=== PATIENT | male | born 1935 | race Caucasian/White ===

== ENCOUNTER 2020-09-10 11:10 | Emergency (ER) | payer MEDICARE ==
[~2020-09-10] VITALS: Ht 167.6 cm; Wt 60.8 kg
--- NOTE | 2020-09-10 11:30 | NUR ---
MARGARITA FROM HOME TO ER BED 7. AAOX4. NOT IN RESP DISTRESS, BREATHING EVEN AND UNLABORED. BROUGHT IN FOR INTERMITENT NOSEBLEED X 3 DAYS. AT THE TIME OF PRESENTATION. NO ACTIVE NOSEBLEED NOTED BUT PT HAVE DRIED BLOOD ON HIS HANDS. MD AT BEDSIDE FOR EVAL. ORDERS RECEIVED.
[2020-09-10 12:17] LABS: BASOPHILS % (AUTO) 0.6 % (0.0-2.0); EOSINOPHILS % (AUTO) 2.2 % (0.0-6.0); HEMATOCRIT 39 % (39-51); HEMOGLOBIN 12.9 g/dL (13.5-17.5); LYMPHOCYTES # (AUTO) 0.9 /CMM (0.8-4.8); LYMPHOCYTES % (AUTO) 14.8 % (20.0-44.0); MEAN CORPUSCULAR HGB CONC 34 g/dl (31.0-36.0); MEAN CORPUSCULAR VOLUME 89 fL (80-96); MONOCYTES # (AUTO) 0.7 /CMM (0.1-1.30); NEUTROPHILS # (AUTO) 4.6 /CMM (1.8-8.9); NEUTROPHILS % (AUTO) 71.4 % (43.0-81.0); PLATELET COUNT (AUTO) 225 /CMM (150-450); RED BLOOD CELL COUNT(AUTO) 4.33 MIL/uL (4.5-6.0); WHITE BLOOD COUNT (AUTO) 6.4 K/uL (4.3-11.0)
--- NOTE | 2020-09-10 12:55 | NUR ---
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 HE WILL SEND KARLEY TO HAVE HIS DAD PICKED UP.
--- NOTE | 2020-09-10 13:16 | NUR ---
Elsy picked up. Patient discharged to home in stable condition. Written and verbal after care instructions given. Patient verbalizes understanding of instruction. Pt ambulatory with a steady gait
[2020-09-10 13:17] VITALS: BP 138/77
== END 2020-09-10 13:18 | disposition home or self-care (01) ==
LOC: ER 11:23
DX: R04.0 Epistaxis (principal); H91.90 Unspecified hearing loss, unspecified ear
CPT/HCPCS: 36415; 85025-TC; 85730-TC

== ENCOUNTER 2020-10-24 02:42 | Emergency (ER) | payer MEDICARE, BC ==
[~2020-10-24] VITALS: Ht 170.2 cm; Wt 78.5 kg
--- NOTE | 2020-10-24 02:55 | NUR ---
PATIENT'S FERRER CATHETER BAG IS CHANGED AND URINE IS DRAINING.
[2020-10-24 03:43] LABS: BILIRUBIN,URINE NEGATIVE (NEGATIVE); COLOR,URINE YELLOW (YELLOW); LEUKOCYTE ESTERASE ,URINE MODERATE (NEGATIVE); NITRITE, URINE POSITIVE (NEGATIVE); PROTEIN,URINE 100 mg/dl (NEGATIVE); UGLUCOSE NEGATIVE (NEGATIVE); UROBILINOGEN,URINE 0.2 EU/dL (0.2)
[2020-10-24 03:48] LABS: BACTERIA,URINE 3+ /HPF (None Seen); RBC,URINE TOO NUMEROUS TO COUN /HPF (0-2); SQUAMOUS EPITHELIAL CELL,UR Few /HPF (None Seen); WBC,URINE TOO NUMEROUS TO COUN /HPF (0-3)
[2020-10-24 03:49] LABS: URINE AMORPHOUS URATE Moderate /HPF (None Seen)
[2020-10-24 05:33] VITALS: BP 141/74
[2020-10-24] MEDS ORDERED: CIPR-262 PO (05:38)
--- NOTE | 2020-10-24 06:45 | NUR ---
Patient discharged to home in stable condition. Written and verbal after care instructions given. Patient verbalizes understanding of instruction.
--- NOTE | 2020-10-24 06:54 | NUR ---
CALLED HAYLEY TO RECEIVE PATIENT.
== END 2020-10-24 06:56 | disposition home or self-care (01) ==
LOC: ER 02:45
DX: N39.0 Urinary tract infection, site not specified (principal)
CPT/HCPCS: 81001; 87086-TC; 87186-TC

== ENCOUNTER 2021-05-10 00:47 | Inpatient (IN) | payer MEDICARE, BC ==
[~2021-05-10] VITALS: Ht 172.7 cm; Wt 82.6 kg
[~2021-05-10 00:47] MED LIST: CIPR-262 PO
--- NOTE | 2021-05-10 01:15 | NUR ---
PATIENT [id number] C/O RIGHT UPPER QUADRANT PAIN FOR THE PAST FEW HOURS, WITH +NAUSEA. PATIENT IS A/O X 4, RR EVEN AND UNLABORED, NO SOB NOTED. PATIENT CONNECTED TO HISTORIC SITES REGISTRAR AND POX.
[2021-05-10] MEDS ORDERED: PANTOPRAZOLE 40 MG VIAL ONE (01:25)
[2021-05-10] MEDS ORDERED: PANTOPRAZOLE 40 MG VIAL IV ONE (01:30)
--- NOTE | 2021-05-10 01:36 | NUR ---
URINE COLLECTED AND SENT TO LAB
[2021-05-10 01:42] LABS: BASOPHILS # (AUTO) 0.1 K/uL (0.0-0.2); BASOPHILS % (AUTO) 0.8 % (0.0-2.0); EOSINOPHILS % (AUTO) 2.9 % (0.0-6.0); HEMATOCRIT 39 % (39-51); HEMOGLOBIN 13.4 g/dL (13.5-17.5); LYMPHOCYTES # (AUTO) 1.4 K/uL (0.8-4.8); LYMPHOCYTES % (AUTO) 18.4 % (20.0-44.0); MEAN CORPUSCULAR HGB CONC 34 g/dl (31.0-36.0); MEAN CORPUSCULAR VOLUME 89 fL (80-96); MONOCYTES # (AUTO) 0.7 K/uL (0.1-1.30); NEUTROPHILS # (AUTO) 5.3 K/uL (1.8-8.9); NEUTROPHILS % (AUTO) 68.9 % (43.0-81.0); PLATELET COUNT (AUTO) 340 K/uL (150-450); RED BLOOD CELL COUNT(AUTO) 4.41 MIL/uL (4.5-6.0); WHITE BLOOD COUNT (AUTO) 7.8 K/uL (4.3-11.0)
[2021-05-10 01:43] LABS: ALANINE AMINOTRANSFERASE 211 U/L (12-78); ALBUMIN 3.3 g/dL (3.4-5.0); ALKALINE PHOSPHATASE 166 U/L (46-116); ASPARTATE AMINOTRANSFERASE 224 U/L (15-37); BILIRUBIN,DIRECT 0.9 mg/dL (0.0-0.2); BILIRUBIN,TOTAL 1.8 mg/dL (0.2-1.0); CALCIUM, SERUM 9.1 mg/dL (8.5-10.1); CARBON DIOXIDE 23 mmol/L (21-32); CHLORIDE 106 mmol/L (98-107); CREATININE 1.6 mg/dL (0.6-1.3); GLUCOSE 130 mg/dL (74-106); LIPASE 168 U/L (73-393); POTASSIUM 3.9 mmol/L (3.5-5.1); SODIUM SERUM 141 mmol/L (136-145); TOTAL PROTEIN, SERUM 7.4 g/dL (6.4-8.2); UREA NITROGEN, BLOOD 20 mg/dL (7-18)
[2021-05-10 02:00] LABS: BILIRUBIN,URINE SMALL (NEGATIVE); COLOR,URINE YELLOW (YELLOW); LEUKOCYTE ESTERASE ,URINE NEGATIVE (NEGATIVE); NITRITE, URINE NEGATIVE (NEGATIVE); PROTEIN,URINE NEGATIVE (NEGATIVE); UGLUCOSE NEGATIVE (NEGATIVE)
[2021-05-10] MEDS ORDERED: ONDANSETRON HCL/PF 4 MG/2 ML VIAL ONE ×2 (02:48→05:30)
[2021-05-10] MEDS ORDERED: MORPHINE SULFATE INJ 2 MG/ML DISP.SYRIN ONE ×2 (02:48→05:30)
[2021-05-10] MEDS ORDERED: ONDANSETRON HCL/PF - ER 4 MG/2 ML VIAL IV ONE ×2 (03:00→05:30)
[2021-05-10] MEDS ORDERED: MORPHINE SULFATE INJ 2 MG/ML DISP.SYRIN IV ONE ×2 (03:00→05:30)
--- NOTE | 2021-05-10 03:59 | NUR ---
FOLLOWED UP WITH [facility] REGARDING IMAGING RESULT
[2021-05-10] MEDS ORDERED: BISACODYL SUPP (10 MG) 10 MG/SUPP.RECT SUPP.RECT RC ONE ×2 (04:30→04:45)
[2021-05-10] MEDS ORDERED: CEFTRIAXONE 1 G in IV D5W 50 ML IV ONE (04:30)
[2021-05-10] MEDS ORDERED: CEFTRIAXONE 1GM BAG (ER ONLY) 50 ML IV ONE (04:45)
--- NOTE | 2021-05-10 05:04 | NUR ---
COVID SWAB DONE AND SENT TO LAB
--- NOTE | 2021-05-10 06:16 | NUR ---
ROOM ASSIGNMENT: [id number]
--- NOTE | 2021-05-10 06:49 | NUR ---
REPORT GIVEN TO CHUN MARTIN
--- NOTE | 2021-05-10 06:57 | NUR ---
PATIENT TRANSFERRED, VSS, PT NOTED IN NO ACUTE DISTRESS.
[2021-05-10 06:58] VITALS: BP 149/88
[2021-05-10] MEDS ORDERED: ONDANSETRON HCL/PF 4 MG/2 ML VIAL IVP PRN (07:00)
--- NOTE | 2021-05-10 07:05 | NUR ---
PATIENT ARRIVED @0681 [employer]IA [employer]. WNL. WILL ENDORSE TO ONCOMING SHIFT.
[2021-05-10] MEDS: IV NS 0.9% 1,000 ML IV PRN ×2 (07:58→18:12)
[2021-05-10 08:00] VITALS: BP 152/78
[2021-05-10] MEDS: ACETAMINOPHEN 325 MG TABLET PO PRN (08:10)
--- NOTE | 2021-05-10 08:22 | NUR ---
MS MCCOLLUM OPENING NOTES: RECEIVED PATIENT IN BED, AWAKE, A/O X2. PATIENT ON ROOM AIR; BREATHING EVEN AND UNLABORED, NO SOB NOTED. NO COMPLAINS OF PAIN. L WRIST IV ACCESS G # 20 PRESENT AND INTACT RUNNING NS @ 100 MLS/HR. SAFETY PRECAUTIONS IN PLACE; BED IN LOW POSITION AND LOCKED, RAILS UP X2, CALL LIGHT WITHIN REACH. WILL CONTINUE TO MONITOR PATIENT. Addendum: 05/10/21 at 0831 by BREONNA COX RN DIFFERENT PATIENT
--- NOTE | 2021-05-10 08:31 | NUR ---
MS RN ADMITTING/OPENING NOTES: RECEIVED PATIENT IN BED, AWAKE, A/O X4 NEW ADMISSION. PATIENT ON ROOM AIR; BREATHING EVEN AND UNLABORED, NO SOB NOTED. COMPLAINING OF ABDOMINAL PAIN; PRN TYLENOL ADMINISTERED. LAC G# 18 PRESENT AND INTACT RUNNING NS @ 75 MLS/HR. SAFETY PRECAUTIONS IN PLACE; BED IN LOW POSITION AND LOCKED, RAILS UP X2, CALL LIGHT WITHIN REACH. WILL CONTINUE TO MONITOR PATIENT.
--- NOTE | 2021-05-10 10:21 | NUR ---
MS RN NOTES ENDORSED PATIENT FOR YARED TO NURSE GRIFFITHS
--- NOTE | 2021-05-10 11:51 | NUR ---
MS/RN NOTES VTE SCORE 3 JESÚS MOTT WAS AWARE NO NEW ORDER AT THIS TIME.
[2021-05-10 16:00] VITALS: BP 144/80
[2021-05-10] MEDS: VALSARTAN 80 MG TABLET PO SCH (16:11)
--- NOTE | 2021-05-10 18:38 | NUR ---
MS/RN CLOSING NOTES PATIENT IS AWAKE, ALERT AND ORIENTED X3-4. PATIENT IS ON ROOM AIR. PATIENT IN NO APPARENT RESPIRATORY DISTRESS NOTED. COMPLAINED OF PAIN NOTED OFFER PAIN MEDICATION PATIENT REFUSED. IV ACCESS AT RIGHT AC #2OG WITH IV FLUID OF NS 1L AT 75ML/HOUR ON AND INFUSING WELL. SEEN AND EXAMINED BY MD WITH ORDERS MADE AND CARRIED OUT. ALL DUE MEDICATIONS WAS GIVEN. SAFETY PRECAUTIONS WAS IN PLACED. BED IN LOWEST POSITION AND LOCKED. SIDERAILS UP X2. CALL LIGHT WITHIN REACH. WILL ENDORSED TO ANGER CONTROL COUNSELOR FOR YARED.
--- NOTE | 2021-05-10 19:50 | NUR ---
Patient is currently resting in bed though easy to wake, A&Ox4, no signs of distress. Patient reports only tolerable "discomfort" to abdomen at this time. Reminded patient to ask when using the restroom d/t fall risk and because we need a urine sample for testing. RAC #20G currently infusing NS at 75cc/hr. Will continue to monitor.
[2021-05-10 20:00] VITALS: BP 131/81
--- NOTE | 2021-05-10 21:37 | NUR ---
urine specimen collected. called lab for pickup.
[2021-05-10 23:15] LABS: BILIRUBIN,URINE SMALL (NEGATIVE); COLOR,URINE AMBER (YELLOW); LEUKOCYTE ESTERASE ,URINE NEGATIVE (NEGATIVE); NITRITE, URINE NEGATIVE (NEGATIVE); PROTEIN,URINE TRACE mg/dl (NEGATIVE); UGLUCOSE NEGATIVE (NEGATIVE); UROBILINOGEN,URINE >=8.0 EU/dL (0.2)
[2021-05-10 23:38] LABS: CREATININE, URINE 123.2 MG/DL (30.0-125.0); URINE TOTAL PROTEIN 36.1 mg/dL (0-11.9)
[2021-05-11 02:04] LABS: BACTERIA,URINE None seen /HPF (None Seen); RBC,URINE 0-2 /HPF (0-2); WBC,URINE NONE SEEN /HPF (0-3)
[2021-05-11 02:05] LABS: EOSINOPHIL,URINE None Seen; SQUAMOUS EPITHELIAL CELL,UR Few /HPF (None Seen)
[2021-05-11] MEDS: CEFTRIAXONE 1 G in IV D5W 50 ML IV SCH (05:32)
[2021-05-11 06:30] LABS: ALBUMIN 2.8 g/dL (3.4-5.0); BILIRUBIN,TOTAL 3.9 mg/dL (0.2-1.0); CALCIUM, SERUM 8.2 mg/dL (8.5-10.1); CREATININE 1.2 mg/dL (0.6-1.3); MAGNESIUM 2.1 mg/dL (1.8-2.4); PHOSPHORUS 1.9 mg/dL (2.5-4.9); POTASSIUM 3.8 mmol/L (3.5-5.1); TOTAL PROTEIN, SERUM 6.8 g/dL (6.4-8.2)
[2021-05-11 06:50] LABS: BASOPHILS # (AUTO) 0.1 K/uL (0.0-0.2); BASOPHILS % (AUTO) 0.3 % (0.0-2.0); EOSINOPHILS % (AUTO) 0.3 % (0.0-6.0); HEMATOCRIT 37 % (39-51); HEMOGLOBIN 12.7 g/dL (13.5-17.5); LYMPHOCYTES % (AUTO) 6.5 % (20.0-44.0); MEAN CORPUSCULAR HGB CONC 34 g/dl (31.0-36.0); MEAN CORPUSCULAR VOLUME 90 fL (80-96); MONOCYTES # (AUTO) 1.9 K/uL (0.1-1.30); MONOCYTES % (AUTO) 12.2 % (2.0-12.0); NEUTROPHILS # (AUTO) 12.7 K/uL (1.8-8.9); NEUTROPHILS % (AUTO) 80.7 % (43.0-81.0); PLATELET COUNT (AUTO) 315 K/uL (150-450); RED BLOOD CELL COUNT(AUTO) 4.18 MIL/uL (4.5-6.0); WHITE BLOOD COUNT (AUTO) 15.7 K/uL (4.3-11.0)
[2021-05-11] MEDS: IV NS 0.9% 1,000 ML IV PRN ×2 (06:59→17:50)
--- NOTE | 2021-05-11 07:20 | NUR ---
Patient has been A&Ox4 overnight slept well though easy to wake. Urinated x3, sent first urine specimen to lab. Asks for assistance to restroom minimal 1 person and steady. Afebrile. VSS. States he only has minimal abdominal discomfort and does not want PRN medication.
--- NOTE | 2021-05-11 07:34 | NUR ---
MS/RN OPENING NOTES RECEIVED PATIENT AWAKE ALERT AND ORIENTED X 4. PATIENT IS ON ROOM AIR. PATIENT IN NO APPARENT RESPIRATORY DISTRESS NOTED. NO COMPLAINED OF PAIN AT THIS TIME. WILL CONTINUE TO MONITOR.
[2021-05-11 08:00] VITALS: BP 135/84
[2021-05-11] MEDS ORDERED: ROSU20TA32 PO (10:13)
[2021-05-11] MEDS ORDERED: LOSA25TA27 PO (10:13)
[2021-05-11] MEDS ORDERED: FAMO40TA7 PO (10:13)
[2021-05-11] MEDS ORDERED: FINA5TAB11 PO (10:13)
[2021-05-11] MEDS ORDERED: MIRT7.5T10 PO (10:13)
[2021-05-11] MEDS ORDERED: QUET25TA PO (10:13)
[2021-05-11] MEDS ORDERED: TICA90TA PO (10:13)
[2021-05-11] MEDS ORDERED: MEMA7CAP2 PO (10:13)
[2021-05-11] MEDS ORDERED: TAMS-12 PO (10:13)
[2021-05-11] MEDS ORDERED: ASPI-1420 PO (10:13)
[2021-05-11] MEDS ORDERED: K PHOS NEUTRAL 250 MG TABLET PO ONE (15:30)
[2021-05-11 16:00] VITALS: BP 125/75
--- NOTE | 2021-05-11 19:15 | NUR ---
MS/RN CLOSING NOTES PATIENT IS AWAKE, ALERT AND ORIENTED X3-4. PATIENT IS ON ROOM AIR. PATIENT IN NO APPARENT RESPIRATORY DISTRESS NOTED. NO COMPLAINED OF PAIN NOTED. IV ACCESS AT RIGHT AC #2OG WITH IV FLUID OF NS 1L AT 75ML/HOUR ON AND INFUSING WELL. SEEN AND EXAMINED BY MD WITH ORDERS MADE AND CARRIED OUT. ALL DUE MEDICATIONS WAS GIVEN. SAFETY PRECAUTIONS WAS IN PLACED. BED IN LOWEST POSITION AND LOCKED. SIDERAILS UP X2. CALL LIGHT WITHIN REACH. WILL ENDORSED TO HOUSE DIRECTOR FOR YARED.
--- NOTE | 2021-05-11 19:30 | NUR ---
RN OPENING NOTE PATIENT IN BED, SLEEPING. AWAKENS EASILY. A/O X 4. PATIENT IS ON RA, TOLERATING WELL. PATIENT HAS LOSS OF HEARING ON R EAR. PATIENT HAS A RAC 20 G WITH NS AT 75 ML/HR, PATENT AND INTACT. PATIENT DOES NOT REPORT ANY PAIN AT THIS TIME. NO N/V. SAFETY MEASURES IN PLACE: BED LOCKED AND IN LOWEST POSITION, CALL LIGHT WITHIN REACH, SIDE RAILS UP, BED ALARM ON. WILL MONITOR PATIENT CLOSELY.
[2021-05-11 20:00] VITALS: BP 119/69
[2021-05-11] MEDS: VALSARTAN 80 MG TABLET PO SCH (22:07)
[2021-05-11] MEDS: ACETAMINOPHEN 325 MG TABLET PO PRN (22:35)
--- NOTE | 2021-05-12 01:26 | NUR ---
RN NOTE OBTAINED HIDA SCAN, EDUCATED PATIENT, AND PUT PATIENT ON NPO.
[2021-05-12] MEDS: CEFTRIAXONE 1 G in IV D5W 50 ML IV SCH (04:35)
[2021-05-12] MEDS: IV NS 0.9% 1,000 ML IV PRN (04:41)
[2021-05-12 06:13] LABS: BASOPHILS # (AUTO) 0.1 K/uL (0.0-0.2); BASOPHILS % (AUTO) 0.5 % (0.0-2.0); EOSINOPHILS % (AUTO) 2.6 % (0.0-6.0); HEMATOCRIT 37 % (39-51); HEMOGLOBIN 12.5 g/dL (13.5-17.5); LYMPHOCYTES % (AUTO) 17.7 % (20.0-44.0); MEAN CORPUSCULAR HGB CONC 34 g/dl (31.0-36.0); MEAN CORPUSCULAR VOLUME 91 fL (80-96); MONOCYTES # (AUTO) 1.3 K/uL (0.1-1.30); NEUTROPHILS # (AUTO) 7.6 K/uL (1.8-8.9); NEUTROPHILS % (AUTO) 67.2 % (43.0-81.0); PLATELET COUNT (AUTO) 308 K/uL (150-450); WHITE BLOOD COUNT (AUTO) 11.2 K/uL (4.3-11.0)
--- NOTE | 2021-05-12 06:47 | NUR ---
RN CLOSING NOTE PATIENT IN BED, SLEEPING. AWAKENS EASILY. A/O X 4. PATIENT IS ON RA, TOLERATING WELL. PATIENT HAS LOSS OF HEARING ON R EAR. PATIENT HAS A RAC 20 G WITH NS AT 75 ML/HR, PATENT AND INTACT. PATIENT DOES NOT REPORT ANY PAIN AT THIS TIME, PAIN MANAGED WITH TYLENOL. PATIENT IS CURRENTLY NPO FOR ORDERED HIDA SCAN. CONSENT SIGNED. SAFETY MEASURES IN PLACE: BED LOCKED AND IN LOWEST POSITION, CALL LIGHT WITHIN REACH, SIDE RAILS UP, BED ALARM ON. WILL ENDORSE TO DAY SHIFT NURSE FOR YARED.
--- NOTE | 2021-05-12 07:25 | NUR ---
RN MS OPENING NOTES RECEIVED PATIENT IN BED, SLEEPING. EASILY AROUSABLE. A/O X 4. ON R.A TOLERATING WELL. NO SOB OR RESPIRATORY DISTRESS NOTED .BREATHING EVEN AND UNLABORED.PATIENT HAS LOSS OF HEARING ON R EAR. PATIENT HAS IV AT RAC 20 G WITH NS AT 75 ML/HR, PATENT AND INTACT. NO FACIAL GRIMACE, NO MOANING AND NO GUARDING BX NOTED AT THIS TIME, IN COMFORTABLE POSITION. SAFETY MEASURES IN PLACE: BED LOCKED AND IN LOWEST POSITION, CALL LIGHT WITHIN REACH, SIDE RAILS UP, BED ALARM ON. WILL CONTINUE TO MONITOR PATIENT ACCDGLY..
--- NOTE | 2021-05-12 07:34 | NUR ---
RN NOTES REMINDED PATIENT THAT HE IS STILL ON NPO AT THIS TIME FOR HIDA PROCEDURE AND EXPRESSED UNDERSTANDING. WILL CONTINUE TO MONITOR PATIENT.
[2021-05-12 08:00] VITALS: BP 131/80
[2021-05-12 08:11] LABS: ALANINE AMINOTRANSFERASE 127 U/L (12-78); ALBUMIN 2.8 g/dL (3.4-5.0); ALKALINE PHOSPHATASE 182 U/L (46-116); ASPARTATE AMINOTRANSFERASE 43 U/L (15-37); BILIRUBIN,TOTAL 2.1 mg/dL (0.2-1.0); CALCIUM, SERUM 8.6 mg/dL (8.5-10.1); CARBON DIOXIDE 24 mmol/L (21-32); CHLORIDE 108 mmol/L (98-107); CREATININE 1.4 mg/dL (0.6-1.3); GLUCOSE 91 mg/dL (74-106); LIPASE 443 U/L (73-393); MAGNESIUM 2.3 mg/dL (1.8-2.4); PHOSPHORUS 2.2 mg/dL (2.5-4.9); POTASSIUM 3.8 mmol/L (3.5-5.1); SODIUM SERUM 141 mmol/L (136-145); TOTAL PROTEIN, SERUM 7.2 g/dL (6.4-8.2); UREA NITROGEN, BLOOD 16 mg/dL (7-18)
--- NOTE | 2021-05-12 09:40 | NUR ---
RN MS NOTES RECEIVED A CALL FROM [facility] AND WAS TOLD THAT HE CAN DO THE HIDA SCAN TODAY
[2021-05-12] MEDS ORDERED: K PHOS NEUTRAL 250 MG TABLET PO ONE (11:00)
--- NOTE | 2021-05-12 11:59 | NUR ---
RN MS NOTES PATIENT WAS PICKED UP BY [facility]. VIA WHEELCHAIR. IN STABLE CONDITION. WILL CONTINUE TO MONITOR PATIENT
[2021-05-12 16:00] VITALS: BP 119/73
--- NOTE | 2021-05-12 18:38 | NUR ---
RN MS NOTES PATIENT WAS SEEN BY DR. SEGURA AND ORDERED FOR LAPAROSPCOPIC CHOLECYSTECMY POSSIBLE EXPLOR. LAP IN AM ALEJANDRA. EXPLAINED BY MD ABOUT THE PROCEDURE AND VERBALIZED UNDERSTANDING. PATIENT SIGNED CONSENT FOR THE PROCEDURE. DR. MOTT ALSO MADE HIS ROUNDS AND DISCUSSED AND EXPLAINED THE PROCEDURE TO THE PT. CALLED AND SPOKE TO THE SON( GIOVANNY) AND NOTIFIED HIM ABOUT THE PROCEDURE AND EXPRESSED UNDERSTANDING AND WAS TOLD THAT HE ALSO SPOKE WITH DR. SEGURA AND EXPLAINED TO HIM THE PROCEDURE. REINFORCED WITH PATIENT THAT HE IS ON NPO STARTING 12 M.N. WILL CONTINUE TO MONITOR PT.
--- NOTE | 2021-05-12 18:59 | NUR ---
RN MS CLOSING NOTES PATIENT IN BED, AWAKE, A/O X 4. ON R.A TOLERATING WELL. NO SOB OR RESPIRATORY DISTRESS NOTED .BREATHING EVEN AND UNLABORED.PATIENT HAS LOSS OF HEARING ON R EAR. PATIENT WITH IV AT RAC 20 G WITH NS AT 75 ML/HR, PATENT AND INTACT. NO FACIAL GRIMACE, NO MOANING AND NO GUARDING BX NOTED AT THIS TIME, IN COMFORTABLE POSITION. SAFETY MEASURES IN PLACE: BED LOCKED AND IN LOWEST POSITION, CALL LIGHT WITHIN REACH, SIDE RAILS UP, BED ALARM ON. WILL ENDORSED PT. TO RETICLE PRINTER NURSE FOR CONTINUITY OF CARE.
--- NOTE | 2021-05-12 19:30 | NUR ---
RN OPENING NOTE PATIENT IN BED, AWAKE. A/O X 4. PATIENT IS ON RA, TOLERATING WELL. PATIENT HAS LOSS OF HEARING ON R EAR. PATIENT HAS A RAC 20 G WITH NS AT 75 ML/HR, PATENT AND INTACT. PATIENT DOES NOT REPORT ANY PAIN AT THIS TIME. NO N/V. PATIENT NPO AFTER MIDNIGHT FOR PROCEDURE IN AM, CONSENTS SIGNED. SAFETY MEASURES IN PLACE: BED LOCKED AND IN LOWEST POSITION, CALL LIGHT WITHIN REACH, SIDE RAILS UP, BED ALARM ON. WILL MONITOR PATIENT CLOSELY.
[2021-05-12 20:00] VITALS: BP 113/65
[2021-05-12] MEDS: VALSARTAN 80 MG TABLET PO SCH (21:57)
[2021-05-13] VITALS (21 sets, daily range): BP systolic 82–146; BP diastolic 52–80
[2021-05-13] MEDS: CEFTRIAXONE 1 G in IV D5W 50 ML IV SCH (05:04)
[2021-05-13] MEDS: IV NS 0.9% 1,000 ML IV PRN ×2 (05:32→14:07)
[2021-05-13 06:49] LABS: BASOPHILS # (AUTO) 0.1 K/uL (0.0-0.2); BASOPHILS % (AUTO) 0.7 % (0.0-2.0); EOSINOPHILS % (AUTO) 4.8 % (0.0-6.0); HEMATOCRIT 33 % (39-51); HEMOGLOBIN 11.4 g/dL (13.5-17.5); LYMPHOCYTES # (AUTO) 1.4 K/uL (0.8-4.8); LYMPHOCYTES % (AUTO) 17.2 % (20.0-44.0); MEAN CORPUSCULAR HGB CONC 35 g/dl (31.0-36.0); MEAN CORPUSCULAR VOLUME 89 fL (80-96); MONOCYTES % (AUTO) 12.9 % (2.0-12.0); NEUTROPHILS # (AUTO) 5.2 K/uL (1.8-8.9); NEUTROPHILS % (AUTO) 64.4 % (43.0-81.0); PLATELET COUNT (AUTO) 303 K/uL (150-450); RED BLOOD CELL COUNT(AUTO) 3.65 MIL/uL (4.5-6.0)
[2021-05-13 07:06] LABS: *SPE A/G RATIO 0.9 (0.7-1.7); *SPE ALPHA-1-GLOBULIN 0.3 g/dL (0.0-0.4); *SPE ALPHA-2-GLOBULIN 0.8 g/dL (0.4-1.0); *SPE M-SPIKE Not Observed g/dL (Not Observed)
[2021-05-13] MEDS ORDERED: BUPIVACAINE MPF 0.5% W/EPI INJ 30 ML VIAL ONE ×2 (07:30→10:17)
[2021-05-13] MEDS ORDERED: LIDOCAINE 1% INJ 50 ML MDV IJ ONE (07:30)
--- NOTE | 2021-05-13 07:30 | NUR ---
find pt. in am npo for surg.iv infusing,no complaints,making ready for or.side rails up call huang in place.
--- NOTE | 2021-05-13 07:39 | NUR ---
RN CLOSING NOTE PATIENT PREPPED FOR SX, ALL CONSENTS SIGNED AND CHECKLIST DONE. SPOKE WITH SX NURSE AND CONFIRMED ALL PATIENT INFO. PATIENT STABLE AT THIS TIME. ENDORSED TO DAY SHIFT NURSE FOR YARED.
[2021-05-13 08:04] LABS: ALBUMIN 2.4 g/dL (3.4-5.0); BILIRUBIN,TOTAL 1.6 mg/dL (0.2-1.0); CALCIUM, SERUM 8.2 mg/dL (8.5-10.1); CREATININE 1.1 mg/dL (0.6-1.3); MAGNESIUM 2.2 mg/dL (1.8-2.4); PHOSPHORUS 2.9 mg/dL (2.5-4.9); POTASSIUM 3.9 mmol/L (3.5-5.1); TOTAL PROTEIN, SERUM 6.5 g/dL (6.4-8.2)
--- NOTE | 2021-05-13 09:30 | NUR ---
to or via pt. pt. voided.no c/o pain.
[2021-05-13] MEDS ORDERED: FENTANYL PF 250MCG/5ML AMPUL ONE (09:53)
[2021-05-13] MEDS ORDERED: MIDAZOLAM HCL 2 MG/2ML VIAL ONE (09:53)
[2021-05-13] MEDS ORDERED: FAMOTIDINE/PF INJ 20 MG/2 ML VIAL IV ONE (09:54)
[2021-05-13] MEDS ORDERED: ROCURONIUM BROMIDE 50 MG/5 ML ONE (09:54)
[2021-05-13] MEDS ORDERED: GLYCOPYRROLATE 0.2 MG/ML VIAL ONE (10:26)
[2021-05-13] MEDS ORDERED: CELLULOSE,OXIDIZED 1 EA PACK MC ONE (11:30)
[2021-05-13] MEDS ORDERED: BACITRACIN OPHTH OINT 3.5 GM TUBE ONE (12:13)
--- NOTE | 2021-05-13 12:30 | NUR ---
received call from rec. rm. pt. to go to [facility] rm.[id number],post-op.report called to chelly and belongings sent to [facility].
--- NOTE | 2021-05-13 13:30 | NUR ---
RN NOTES RECEIVED PT FROM OR IN ROOM 258. PT VERY MARY'S IGLOO, A/O x1, FOLLOW SIMPLE COMMAND, ON TELE, SR HR IN 72, ON 4L O2 N/C , O2 SAT WNL, R AC IV SITE g 20 CLEAN, DRY AND INTACT, DRESSING TO ABD INTACT AND DRY , SOCORRO DRAIN WITH SMALL AMOUNT OF BLOODY DRAINAGE NOTED , ABD DISTENDED, SOFT TO TOUCH, SR UP x3, CALL LIGHT WITHIN EASY REACH, BED LOCKED AND IN LOWEST POSITION, CONTINUE TO MONITOR .
[2021-05-13] MEDS ORDERED: IBUPROFEN 400 MG TABLET PO ONE (16:00)
[2021-05-13] MEDS ORDERED: ACETAMINOPHEN 325 MG TABLET PO ONE (16:00)
[2021-05-13] MEDS: IBUPROFEN 400 MG TABLET PO SCH ×2 (16:10→23:23)
[2021-05-13] MEDS: GABAPENTIN 300 MG CAPSULE PO SCH ×2 (16:10→23:23)
[2021-05-13] MEDS: ACETAMINOPHEN 325 MG TABLET PO SCH ×2 (16:11→23:23)
--- NOTE | 2021-05-13 18:00 | NUR ---
RN NOTES PT TOLERAING CLEAR LIQUID DIET WELL, DRESSING TO ABD CLEAN, DRY AND INTACT, ON 2L O2 N/C , IVF INFUSING AT 75CC /HR , SR UP x3, CALL LIGHT WITHIN EASY REACH, WILL ENDORSE TO CERTIFIED NURSE NURSE FOR CONTINUITY OF CARE .
--- NOTE | 2021-05-13 19:40 | NUR ---
SIGN BUILDER OPENING NOTE REC'D PT IN BED. ALERT. HARD OF HEARING ON LEFT EAR. PT IS A/O X4 PT ON 2L OF O2 VIA NASAL CANNULA TOLERATING WELL. NO S/S OF DISTRESS NOTED. PT VERBALIZES PAIN, UNDERSTANDS HE HAS PAIN MEDS SCHEDULED TOLERATING UNTIL THEN. ON MONITORING PRESENTS WITH SINUS RHYTHM/TEODORA WITH INVERTED TWAVES. PT ABD DRESSING INTACT, CLEAN. SOCORRO DRAIN PRESENT RED BLOOD DRAINAGE NOTED. PT REMAINS WITH FERRER CATH DRAINING TO GRAVITY. IV SITE FLUSHED. SAFETY MEASURES IN PLACE. HOB ELEVATED SIDE RAILS UP X3 BED LOCKED IN LOWEST POSITION WILL CONT TO MONITOR THROUGHOUT SHIFT FOR CHANGE OF CONDITION.
[2021-05-13] MEDS: VALSARTAN 80 MG TABLET PO SCH (21:05)
--- NOTE | 2021-05-13 21:25 | NUR ---
RN NOTE NON ADMIN VALSARTAN PRIOR TO NON ADMIN, PT NOTED TO HAVE BP IN 80s. AT TIME OF ADMIN, PT HR 57 AND BP 95/53. WILL CONT TO MONITOR CLOSELY. MANAGER SERVICES MADE AWARE.
[2021-05-13] MEDS ORDERED: IBUPROFEN 400 MG TABLET ONE (23:20)
[2021-05-14] VITALS (22 sets, daily range): BP systolic 83–113; BP diastolic 49–80
[2021-05-14] MEDS: IV NS 0.9% 1,000 ML IV PRN (02:17)
[2021-05-14] MEDS ORDERED: CEFTRIAXONE 1 G VIAL ONE (04:04)
[2021-05-14] MEDS: CEFTRIAXONE 1 G in IV D5W 50 ML IV SCH (04:08)
[2021-05-14 04:16] LABS: BASOPHILS # (AUTO) 0.1 K/uL (0.0-0.2); BASOPHILS % (AUTO) 0.6 % (0.0-2.0); EOSINOPHILS % (AUTO) 0.6 % (0.0-6.0); HEMATOCRIT 33 % (39-51); HEMOGLOBIN 11.1 g/dL (13.5-17.5); LYMPHOCYTES # (AUTO) 0.9 K/uL (0.8-4.8); LYMPHOCYTES % (AUTO) 8.8 % (20.0-44.0); MEAN CORPUSCULAR HGB CONC 34 g/dl (31.0-36.0); MEAN CORPUSCULAR VOLUME 91 fL (80-96); MONOCYTES # (AUTO) 1.1 K/uL (0.1-1.30); MONOCYTES % (AUTO) 10.7 % (2.0-12.0); NEUTROPHILS # (AUTO) 7.9 K/uL (1.8-8.9); NEUTROPHILS % (AUTO) 79.3 % (43.0-81.0); PLATELET COUNT (AUTO) 334 K/uL (150-450); RED BLOOD CELL COUNT(AUTO) 3.58 MIL/uL (4.5-6.0); WHITE BLOOD COUNT (AUTO) 9.9 K/uL (4.3-11.0)
[2021-05-14 05:19] LABS: CREATININE 1.3 mg/dL (0.6-1.3); MAGNESIUM 2.2 mg/dL (1.8-2.4); PHOSPHORUS 4.1 mg/dL (2.5-4.9); POTASSIUM 4.4 mmol/L (3.5-5.1)
--- NOTE | 2021-05-14 07:20 | NUR ---
RN OPENING NOTES RECEIVED PT IN BED. A/O X4. ON 2L O2 VIA NC. NO SOB OR ANY S/S OF ACUTE RESPIRATORY DISTRESS. IV ACCESS ON R AC #20 RUNNING NS @75MLS/HR. INFUSING WELL. NO PAIN REPORTED AT THIS TIME. SOCORRO DRAIN IN PLACE. SAFETY MEASURES IMPLEMENTED. CALL LIGHT WITHIN REACH. BED LOCKED AND IN LOWEST POSITION WITH SIDE RAILS UP X3. WILL CONTINUE TO MONITOR.
--- NOTE | 2021-05-14 07:42 | NUR ---
RN NOTE NO SIGNIFICANT CHANGE IN PT CONDITION. SAFETY MEASURES IN PLACE. CONTINUATION OF CARE ENDORSED TO DAY SHIFT RN.
[2021-05-14] MEDS: GABAPENTIN 300 MG CAPSULE PO SCH ×2 (08:18→16:17)
[2021-05-14] MEDS: IBUPROFEN 400 MG TABLET PO SCH ×2 (08:19→16:18)
[2021-05-14] MEDS: ACETAMINOPHEN 325 MG TABLET PO SCH ×2 (08:20→16:18)
--- NOTE | 2021-05-14 10:05 | NUR ---
RN NOTES TRANSFERRED PT TO 3W ROOM 323-1 PER PROTOCOL. REPORT GIVEN TO MAHAD MCCOLLUM FOR YARED. VS STABLE.
--- NOTE | 2021-05-14 10:15 | NUR ---
RN NOTES RECEIVED PATIENT FROM ICU VIA BED, ACCOMPANIED BY AUREA MCCOLLUM. PATIENT IS A/O X4. ON 2L O2 VIA NC. NO SOB OR ANY S/S OF ACUTE RESPIRATORY DISTRESS. IV ACCESS ON R AC #20 RUNNING NS @75MLS/HR. INFUSING WELL. NO COMPLAINTS OF PAIN AT THIS TIME. SOCORRO DRAIN IN PLACE DRAINING SEROSANGUINEOUS DRAINAGE. SAFETY MEASURES IN PLACE. CALL LIGHT WITHIN REACH. BED LOCKED AND IN LOWEST POSITION WITH SIDE RAILS UP X3. WILL CONTINUE TO MONITOR ACCORDINGLY.
--- NOTE | 2021-05-14 18:50 | NUR ---
MS RN CLOSING NOTES PATIENT RESTING IN BED. ON 2L O2 VIA NC. NO SOB OR ANY S/S OF ACUTE RESPIRATORY DISTRESS. IV ACCESS ON R AC #20 RUNNING NS @75MLS/HR. INFUSING WELL. NO COMPLAINTS OF PAIN AT THIS TIME. SOCORRO DRAIN IN PLACE DRAINING SEROSANGUINEOUS DRAINAGE WITH OUTPUT OF 15CC. SAFETY MEASURES IN PLACE. CALL LIGHT WITHIN REACH. BED LOCKED AND IN LOWEST POSITION WITH SIDE RAILS UP X3. ALL NEEDS ATTENDED AND MET, DUE MEDS GIVEN ORDERED. WILL ENDORSE TO ONCOMING SHIFT FOR YARED.
--- NOTE | 2021-05-14 19:30 | NUR ---
MS RN OPENING NOTES PATIET WAS SEEN AWAKE RESTING IN IN BED. PATIENT IS ALERT AND ORIENTED X4. PATIENT IS ON 2LPM OF OXYGEN VIA NASAL CANNULA WITH NO RESPIRATORY DISTRESS NOTED. IV ACCESS NOTED IN RIGHT AC G#20, WHICH IS INTACT, PATENT, AND FLUSHING WELL. SOCORRO DRAIN IN PLACE. PATIENT'S IN NO ACUTE DISTRESS AT THIS TIME. SAFETY MEASURES IN PLACE: BED LOCKED, BED ALARM ON, SIDE RAILS UPX3, AND CALL LIGHT WITHIN REACH. WILL CONTINUE TO MONITOR THE PATIENT.
[2021-05-14] MEDS: VALSARTAN 80 MG TABLET PO SCH (22:00)
[2021-05-15] MEDS: ACETAMINOPHEN 325 MG TABLET PO SCH ×4 (00:43→23:46)
[2021-05-15] MEDS: GABAPENTIN 300 MG CAPSULE PO SCH ×4 (00:43→23:46)
[2021-05-15] MEDS: IBUPROFEN 400 MG TABLET PO SCH ×4 (00:43→23:45)
[2021-05-15] MEDS: CEFTRIAXONE 1 G in IV D5W 50 ML IV SCH (05:21)
[2021-05-15] MEDS: IV NS 0.9% 1,000 ML IV PRN (05:22)
--- NOTE | 2021-05-15 07:48 | NUR ---
MS RN OPENING NOTES RECEIVED PATIENT RESTING IN BED. EASY TO AROUSE. A/O X4. ON 2L OXYGEN VIA NASAL CANNULA, TOLERATING WELL. NO SOB NOTED. NO DISTRESS/DISCOMFORT NOTED. IV ACCESS TO RIGHT AC #18 - INTACT AND FLUSHES WELL, RUNNING NS @ 10ML/HR. MONITORING I/O. SOCORRO DRAIN IN PLACE. SAFETY MEASURES IN PLACE, CALL LIGHT WITHIN REACH. WILL CONTINUE TO MONITOR.
[2021-05-15 08:00] VITALS: BP 123/63
[2021-05-15 16:00] VITALS: BP 111/59
--- NOTE | 2021-05-15 18:36 | NUR ---
MS RN CLOSING NOTES PATIENT CURRENTLY RESTING IN BED. EASY TO AROUSE. A/O X4. ON 2L OXYGEN VIA NASAL CANNULA, TOLERATING WELL. NO SOB NOTED. NO DISTRESS/DISCOMFORT NOTED. IV ACCESS TO RIGHT AC #18 - INTACT AND FLUSHES WELL, RUNNING NS @ 10ML/HR. MONITORING I/O. FERRER CATHETER NOTED - DRAINING CLEAR, YELLOW URINE TO GRAVITY. SOCORRO DRAIN IN PLACE - OUTPUT OF THIS SHIFT. SAFETY MEASURES IN PLACE, CALL LIGHT WITHIN REACH. WILL ENDORSE TO MANAGER OF RECRUITING NURSE FOR YARED.
--- NOTE | 2021-05-15 18:37 | NUR ---
SOCORRO DRAIN OUTPUT 40ML
[2021-05-15 20:00] VITALS: BP_SYST 109; BP_DIAS 64; BP_DIAS 65
--- NOTE | 2021-05-15 20:10 | NUR ---
MS RN OPENING NOTE RECEIVED PT IN BED, RESTING. A/O X4. PT IS STABLE ON 2L OXYGEN VIA NC, NO SOB OR RESPIRATORY DISTRESS NOTED, NO C/O PAIN. RESPIRATIONS EVEN AND UNLABORED, IV ACCESS NOTED RIGHT AC G#18, INTACT, PATENT AND FLUSHING WELL. SOCORRO DRAIN AND FERRER CATHETER NOTED. FALL AND SAFETY MEASURES IN PLACE AND MAINTAINED AT ALL TIMES. BED ALARM ON, BED IN LOW AND LOCKED POSITION, HOB ELEVATED TO SEMI FOWLERS POSITION, CALL LIGHT AND TABLE WITHIN REACH, SIDE RAILS UP X2. WILL CONTINUE TO MONITOR.
[2021-05-15] MEDS: VALSARTAN 80 MG TABLET PO SCH (22:17)
[2021-05-16] MEDS: CEFTRIAXONE 1 G in IV D5W 50 ML IV SCH (05:23)
--- NOTE | 2021-05-16 06:30 | NUR ---
MS RN CLOSING NOTE PT SLEEPING AND EASILY AROUSED, STABLE ON 2L OXYGEN VIA NC. FERRER CATHETER CARE PROVIDED DRAINING YELLOW , CLEAR URINE OUT PUT 1500ML AND SOCORRO DRAIN PINK COLOR 80ML. PT REMAINED STABLE THROUGHOUT SHIFT. WILL ENDORSE TO ONCOMING NURSE.
--- NOTE | 2021-05-16 06:33 | NUR ---
MS RN CLOSING NOTE PT SLEEPING AND AROUSABLE, STABLE ON 2L OXYGEN VIA NC. FERRER CATHETER CREA
--- NOTE | 2021-05-16 07:30 | NUR ---
RN OPENING NOTE RECEIVED PT IN BED, SLEEPING CALM AND COMFORTABLE. A/O X4. PT IS STABLE ON 2L OXYGEN VIA NC, NO SOB OR RESPIRATORY DISTRESS NOTED, NO C/O PAIN. RESPIRATIONS EVEN AND UNLABORED, IV ACCESS ON RAC G#18, INTACT, PATENT AND FLUSHING WELL. SOCORRO DRAIN INTACT AND DRAINING. FERRER CATHETER INTACT AND DRAINING WELL. SAFETY MEASURES IN PLACE .BED ALARM ON, BED IN LOW AND LOCKED POSITION, HOB ELEVATED TO SEMI FOWLERS POSITION, CALL LIGHT AND TABLE WITHIN REACH, SIDE RAILS UP X2. WILL CONTINUE TO MONITOR.
[2021-05-16 08:00] VITALS: BP 144/65
[2021-05-16] MEDS: GABAPENTIN 300 MG CAPSULE PO SCH ×2 (08:09→15:30)
[2021-05-16] MEDS: ACETAMINOPHEN 325 MG TABLET PO SCH ×2 (08:10→15:31)
[2021-05-16] MEDS: IBUPROFEN 400 MG TABLET PO SCH ×2 (08:13→15:32)
[2021-05-16 11:20] LABS: CREATININE 1.1 mg/dL (0.6-1.3); POTASSIUM 3.8 mmol/L (3.5-5.1)
[2021-05-16 11:55] LABS: BASOPHILS % (AUTO) 0.6 % (0.0-2.0); EOSINOPHILS % (AUTO) 5.9 % (0.0-6.0); HEMATOCRIT 33 % (39-51); LYMPHOCYTES # (AUTO) 0.8 K/uL (0.8-4.8); LYMPHOCYTES % (AUTO) 13.2 % (20.0-44.0); MEAN CORPUSCULAR HGB CONC 33 g/dl (31.0-36.0); MEAN CORPUSCULAR VOLUME 91 fL (80-96); MONOCYTES # (AUTO) 0.7 K/uL (0.1-1.30); MONOCYTES % (AUTO) 10.5 % (2.0-12.0); NEUTROPHILS # (AUTO) 4.4 K/uL (1.8-8.9); NEUTROPHILS % (AUTO) 69.8 % (43.0-81.0); PLATELET COUNT (AUTO) 339 K/uL (150-450); RED BLOOD CELL COUNT(AUTO) 3.67 MIL/uL (4.5-6.0); WHITE BLOOD COUNT (AUTO) 6.4 K/uL (4.3-11.0)
[2021-05-16 16:00] VITALS: BP 117/69
--- NOTE | 2021-05-16 18:42 | NUR ---
RN CLOSING NOTE PATIENT AWAKE IN BED, CALM AND COMFORTABLE. A/O X4. PT IS STABLE ON 2L OXYGEN VIA NC, NO SOB OR RESPIRATORY DISTRESS NOTED, NO C/O PAIN. RESPIRATIONS EVEN AND UNLABORED, IV ACCESS ON RAC G#18, INTACT, PATENT AND FLUSHING WELL. SOCORRO DRAIN INTACT AND DRAINING WELL. FERRER CATHETER INTACT AND DRAINING WELL. SAFETY MEASURES IN PLACE .BED ALARM ON, BED IN LOW AND LOCKED POSITION, HOB ELEVATED TO SEMI FOWLERS POSITION, CALL LIGHT AND TABLE WITHIN REACH, SIDE RAILS UP X2. WILL CONTINUE TO MONITOR. ALL MEDS GIVEN ORDERED.ALL NEEDS ATTENDED AND MET.WILL ENDORSE TO ONCOMING SHIFT FOR YARED.
--- NOTE | 2021-05-16 19:40 | NUR ---
MS RN OPENING RECEIVED PATIENT IN BED WITH EYES CLOSED, EASY TO AROUSE. A/OX2. PATIENT CURRENTLY IN 2LPM OF O2 VIA NC, TOLERATING WELL NO S/S OF APPARENT DISTRESS, HOB UP IN HIGH FOWLERS. IV NS RUNNING @10ML/HR. WILL CONT. TO MONITOR.
[2021-05-16 20:00] VITALS: BP 110/62
[2021-05-16] MEDS: VALSARTAN 80 MG TABLET PO SCH (22:12)
[2021-05-17] MEDS: IBUPROFEN 400 MG TABLET PO SCH ×4 (00:04→23:04)
[2021-05-17] MEDS: GABAPENTIN 300 MG CAPSULE PO SCH ×4 (00:04→23:04)
[2021-05-17] MEDS: ACETAMINOPHEN 325 MG TABLET PO SCH ×4 (00:05→23:04)
--- NOTE | 2021-05-17 00:12 | NUR ---
MS RN NOTES PATIENT GIVEN 000O MEDICATIONS WITH MOTRIN AND TYLENOL. ASKED PATIENT IF HE WANTED TO EAT SOMETHING BECAUSE OF THE MEDICATIONS HE IS TAKING. PATIENT REQUESTED JELLO. PATIENT GIVEN SOME GELATIN, TOLERATING WELL. WILL CONT. TO MONITOR.
[2021-05-17] MEDS: CEFTRIAXONE 1 G in IV D5W 50 ML IV SCH (04:44)
--- NOTE | 2021-05-17 07:37 | NUR ---
RN OPENING NOTE PT AWAKE IN BED RESTING. ON 2L NC WITH NO RESPIRATORY DISTRESS PRESENT. A/O X4 AND PORTUGUESE SPEAKING. NO COMPLAINT OF PAIN OR NAUSEA PRESENT. NO CLAY CARMAN PRESENT. NO EDEMA. ON BEDREST. F/C PRESENT AND DRAINING WITH CLEAR YELLOW FLUID. SOCORRO DRAIN PRESENT AND DRAINING WITH SEROSANGUINEOUS FLUID.. SURGICAL DRESSINGS PRESENT ON ABDOMEN, PT S/P CHOLECYSTECTOMY. IV PRESENT ON R AC 18G AND FLUSHES WELL. TKO FLUIDS RUNNING. LABS AND ORDERS REVIEWED. SAFETY MEASURES IN PLACE. SIDE RAILS RAISED. BED LOWERED. CALL LIGHT WITHIN REACH. WILL CONTINUE TO MONITOR.
[2021-05-17] MEDS: ATORVASTATIN 40 MG TABLET PO SCH (12:19)
[2021-05-17] MEDS: TAMSULOSIN 0.4 MG CAP.SR.24H PO SCH (12:19)
[2021-05-17] MEDS: TICAGRELOR 90 MG TABLET PO SCH ×2 (12:20→22:14)
[2021-05-17] MEDS: FAMOTIDINE (20 MG) 20 MG TABLET PO SCH (18:17)
[2021-05-17] MEDS: MEMANTINE HCL 5 MG TABLET PO SCH (18:17)
--- NOTE | 2021-05-17 18:53 | NUR ---
RN CLOSING NOTE PT AWAKE IN BED RESTING. ON 2L NC WITH NO RESPIRATORY DISTRESS PRESENT. A/O X4 AND URDU SPEAKING. NO COMPLAINT OF PAIN OR NAUSEA PRESENT. NO BUTADIENE CONVERTER HELPER PRESENT. NO EDEMA. ON BEDREST. F/C PRESENT AND DRAINING WITH CLEAR YELLOW FLUID. SOCORRO DRAIN PRESENT AND DRAINING WITH SEROSANGUINEOUS FLUID.. SURGICAL DRESSINGS PRESENT ON ABDOMEN, PT S/P CHOLECYSTECTOMY. IV PRESENT ON R AC 18G AND FLUSHES WELL. TKO FLUIDS RUNNING. LABS AND ORDERS REVIEWED. SAFETY MEASURES IN PLACE. SIDE RAILS RAISED. BED LOWERED. CALL LIGHT WITHIN REACH. WILL GIVE REPORT TO NIGHT NURSE FOR YARED.
--- NOTE | 2021-05-17 19:30 | NUR ---
MS RN OPENING NOTES PATIENT RESTING IN BED PATIENT; A/OX4. RESPIRATIONS ARE EVEN AND NONLABORED; TOLERATING O2 AT 2LPM VIA N/C WELL WITH NO SOB. NO SIGNS OF DISTRESS NOTED. IV RAC #18G NS @ 10ML/HR; PATENT AND INTACT. SOCORRO DRAIN TO RLQ WITH SEROSANGUINEOUS; PATENT AND INTACT. F/C DRAINING CLEAR YELLOW URINE PATENT AND INTACT. ABD DRESSING KEPT C/D/I. SAFETY MEASURES IN PLACE: CALL LIGHT WITHIN REACH, SIDE RAILS UP X 2, BED LOCKED ON LOWEST AND LOCKED POSITION, SIDE RAILS UP X2. PT IN STABLE CONDITION; WILL CONTINUE PLAN OF CARE.
[2021-05-17 20:00] VITALS: BP 101/63
[2021-05-17] MEDS: QUETIAPINE FUMARATE 25 MG TABLET PO SCH (22:14)
[2021-05-17] MEDS: VALSARTAN 80 MG TABLET PO SCH (22:15)
[2021-05-17] MEDS: MIRTAZAPINE 15 MG TABLET PO SCH (22:16)
--- NOTE | 2021-05-17 22:40 | NUR ---
MS RN NOTE - IV RAC #20G G NOTED WITH INFILTRATION. SKIN IS PINK AND WARM TO TOUCH. DC'D IV AND ELEVATED EXTREMITY. INSERTED IV TO LAC#20G S/L; PATENT AND INTACT. NS @10ML/HR
--- NOTE | 2021-05-17 23:27 | NUR ---
MS RN NOTES HAND OFF REPORT GIVEN BY NURSE WARD. PATIENT'S IN NO ACUTE DISTRESS AT THIS TIME. WILL CONTINUE TO MONITOR THE PATIENT.
[2021-05-18] MEDS: CEFTRIAXONE 1 G in IV D5W 50 ML IV SCH (04:00)
[2021-05-18] MEDS: IV NS 0.9% 1,000 ML IV PRN (05:53)
--- NOTE | 2021-05-18 06:05 | NUR ---
MS RN NOTES PATIENT'S ABDOMINAL DSG WAS C/D/I & SOCORRO DRAIN NOTED WITH 25CC OF SEROSANGUINEOUS DRAINAGE AT THIS TIME.
--- NOTE | 2021-05-18 06:37 | NUR ---
MS RN CLOSING NOTES PATIENT WAS LAST SEEN SLEEPING IN BED. PATIENT'S A/O X4. PATIENT'S HARD OF HEARING. PATIENT'S ON 2LPM OF OXYGEN VIA NASAL CANNULA WITH NO RESPIRATORY DISTRESS NOTED. IV ACCESS NOTED ON LAC GAUGE #18 RUNNING NS @ 10ML/HR. ABD DRESSING KEPT C/D/I. SOCORRO DRAIN NOTED IN RLQ OF ABDOMEN WITH 25ML OF SEROSANGUINEOUS DRAINAGE. F/C NOTED DRAINING CLEAR YELLOW URINE WITH AN OUTPUT OF 1,200ML. PATIENT'S IN NO ACUTE DISTRESS AT THIS TIME. SAFETY MEASURES IN PLACE: CALL LIGHT WITHIN REACH, SIDE RAILS UP X3, BED LOCKED, AND BED ALARM ON. WILL ENDORSE CARE TO THE DAY SHIFT NURSE.
[2021-05-18 08:00] VITALS: BP 111/62
--- NOTE | 2021-05-18 08:05 | NUR ---
RN OPENING NOTES PATIENT RESTING IN BED PATIENT; A/OX4. RESPIRATIONS ARE EVEN AND NONLABORED; TOLERATING O2 AT 2LPM VIA N/C WELL WITH NO SOB. NO SIGNS OF DISTRESS NOTED. IV L AC #18G NS @ 10ML/HR; PATENT AND INTACT. SOCORRO DRAIN TO RLQ WITH SEROSANGUINEOUS; PATENT AND INTACT. F/C DRAINING CLEAR YELLOW URINE PATENT AND INTACT. SAFETY MEASURES IN PLACE: CALL LIGHT WITHIN REACH, SIDE RAILS UP X 2, BED LOCKED ON LOWEST AND LOCKED POSITION. PATIENT IN STABLE CONDITION; WILL CONTINUE TO MONITOR.
[2021-05-18] MEDS: LOSARTAN POTASSIUM 25 MG TABLET PO SCH (09:00)
[2021-05-18] MEDS: FINASTERIDE (5 MG) 5 MG TABLET PO SCH (09:22)
[2021-05-18] MEDS: IBUPROFEN 400 MG TABLET PO SCH ×4 (09:22→23:25)
[2021-05-18] MEDS: TAMSULOSIN 0.4 MG CAP.SR.24H PO SCH (09:23)
[2021-05-18] MEDS: ACETAMINOPHEN 325 MG TABLET PO SCH ×4 (09:26→23:26)
[2021-05-18] MEDS: ATORVASTATIN 40 MG TABLET PO SCH (09:26)
[2021-05-18] MEDS: GABAPENTIN 300 MG CAPSULE PO SCH ×4 (09:26→23:25)
[2021-05-18] MEDS: ASPIRIN EC 81 MG TABLET.DR PO SCH (09:26)
[2021-05-18] MEDS: TICAGRELOR 90 MG TABLET PO SCH ×2 (09:27→21:26)
[2021-05-18 16:00] VITALS: BP 126/56
[2021-05-18] MEDS: FAMOTIDINE (20 MG) 20 MG TABLET PO SCH (17:13)
[2021-05-18] MEDS: MEMANTINE HCL 5 MG TABLET PO SCH (17:13)
--- NOTE | 2021-05-18 19:47 | NUR ---
MS RN OPENING NOTES PATIENT WAS LAST SEEN AWAKE IN BED RESTING. PATIENT'S A/O X4. PATIENT'S HARD OF HEARING. PATIENT'S ON 2LPM OF OXYGEN VIA NASAL CANNULA WITH NO RESPIRATORY DISTRESS NOTED. IV ACCESS NOTED ON LAC GAUGE #18 RUNNING NS @ 10ML/HR. ABD DRESSING KEPT C/D/I. SOCORRO DRAIN NOTED IN RLQ OF ABDOMEN WITH SEROSANGUINEOUS DRAINAGE. F/C NOTED DRAINING CLEAR YELLOW URINE. PATIENT'S IN NO ACUTE DISTRESS AT THIS TIME. SAFETY MEASURES IN PLACE: CALL LIGHT WITHIN REACH, SIDE RAILS UP X2, & BED LOCKED. WILL CONTINUE TO MONITOR THE PATIENT.
[2021-05-18 20:00] VITALS: BP 120/61
[2021-05-18] MEDS: QUETIAPINE FUMARATE 25 MG TABLET PO SCH (21:24)
[2021-05-18] MEDS: MIRTAZAPINE 15 MG TABLET PO SCH (21:25)
[2021-05-18] MEDS: VALSARTAN 80 MG TABLET PO SCH (21:25)
--- NOTE | 2021-05-18 23:27 | NUR ---
MS RN NOTES PATIENT REFUSED HIS SCHEDULED MIDNIGHT MEDICATIONS. RISKS HAVE BEEN EXPLAINED TO THE PATIENT. PATIENT STATED HE'S IN NO PAIN.
--- NOTE | 2021-05-19 01:30 | NUR ---
MS RN NOTES PATIENT'S ABDOMINAL DSG WAS C/D/I.
[2021-05-19] MEDS: CEFTRIAXONE 1 G in IV D5W 50 ML IV SCH (04:02)
--- NOTE | 2021-05-19 06:55 | NUR ---
MS RN CLOSING NOTES PATIENT WAS LAST SEEN SLEEPING IN BED. PATIENT'S A/O X4. PATIENT'S HARD OF HEARING. PATIENT'S ON 2LPM OF OXYGEN VIA NASAL CANNULA WITH NO RESPIRATORY DISTRESS NOTED. IV ACCESS NOTED ON LAC GAUGE #18 RUNNING NS @ 10ML/HR. ABD DRESSING KEPT C/D/I. SOCORRO DRAIN NOTED IN RLQ OF ABDOMEN. F/C NOTED DRAINING CLEAR YELLOW URINE WITH AN OUTPUT OF 1,200ML. PATIENT'S IN NO ACUTE DISTRESS AT THIS TIME. SAFETY MEASURES IN PLACE: CALL LIGHT WITHIN REACH, SIDE RAILS UP X3, BED LOCKED, BED ALARM ON. WILL ENDORSE CARE TO THE DAY SHIFT NURSE.
--- NOTE | 2021-05-19 07:30 | NUR ---
MS RN OPENING NOTE RECEIVED PT IN BED WITH EYES CLOSED, EASY TO AROUSE. A/O X4. PT IS HARD OF HEARING. PT STABLE ON ROOM AIR WITH NO SOB OR S/S OF RESPIRATORY DISTRESS NOTED. PT HAS NO C/O PAIN OR DISCOMFORT AT THIS TIME. PT NOTED WITH SOCORRO DRAIN IN RLQ ABD INTACT. ABD DRESSING C/D/I. FERRER CATH IN PLACE DRAINING CLEAR YELLOW URINE. SAFETY PRECAUTIONS MAINTAINED. BED IN LOWEST LOCKED POSITION, HOB ELEVATED, SIDE RAILS UP X2. CALL LIGHT AND TABLE WITHIN REACH. WILL CONTINUE TO MONITOR.
[2021-05-19] MEDS: GABAPENTIN 300 MG CAPSULE PO SCH (08:02)
[2021-05-19] MEDS: IBUPROFEN 400 MG TABLET PO SCH (08:02)
[2021-05-19] MEDS: ACETAMINOPHEN 325 MG TABLET PO SCH (08:03)
[2021-05-19] MEDS: LOSARTAN POTASSIUM 25 MG TABLET PO SCH (09:00)
[2021-05-19 09:09] VITALS: BP 136/62
[2021-05-19] MEDS: ASPIRIN EC 81 MG TABLET.DR PO SCH (09:28)
[2021-05-19] MEDS: TAMSULOSIN 0.4 MG CAP.SR.24H PO SCH (09:29)
[2021-05-19] MEDS: FINASTERIDE (5 MG) 5 MG TABLET PO SCH (09:29)
[2021-05-19] MEDS: ATORVASTATIN 40 MG TABLET PO SCH (09:29)
[2021-05-19] MEDS: TICAGRELOR 90 MG TABLET PO SCH (09:34)
--- NOTE | 2021-05-19 15:00 | NUR ---
MS DIE CASTING MACHINE OPERATOR NOTE PT DISCHARGED HOME WITH SELF CARE AT THIS TIME. PT IS MEDICALLY STABLE AND CLEARED FOR DISCHARGE BY DR. HERNANDEZ. ALL PT CARE, NEEDS, MEDICATIONS, AND TREATMENT ADMINISTERED PER ORDER. DISCHARGE INSTRUCTIONS PROVIDED TO PT. PT VERBALIZED UNDERSTANDING. PT KEPT CLEAN AND DRY. BELONGINGS LIST ACCOUNTED FOR AND SIGNED BY PT. IV ACCESS REMOVED, PRESSURE APPLIED, AND SECURED WITH GAUZE AND TAPE. NO SIGNS OF BLEEDING NOTED. ID BAND REMOVED. PT TRANSPORTED TO [facility] VIA WHEELCHAIR, ACCOMPANIED BY CHUN ZULETA AND CHUN SEARS. CHARGE NURSE SIDNEY AND DR. HERNANDEZ AWARE.
[2021-05-19 15:43] VITALS: BP 122/61
== END 2021-05-19 15:00 | disposition home health service (06) | DRG 414 ==
LOC: ER 00:53 → MED 06:23 → ICU 05-13 13:25 → MED 05-14 10:22
PROVIDERS: ADMIT Nurse Practitioner Acute Care; ATTEND Internal Medicine
PROC: 0FT40ZZ Resection of Gallbladder, Open Approach (ICD-10-PCS; principal; 2021-05-13)
PROC: 0DNU0ZZ Release Omentum, Open Approach (ICD-10-PCS; 2021-05-13)
DX: K80.12 Calculus of gallbladder with acute and chronic cholecystitis without obstruction (principal); N17.0 Acute kidney failure with tubular necrosis; E87.1 Hypo-osmolality and hyponatremia; N10 Acute pyelonephritis; K82.A1 Gangrene of gallbladder in cholecystitis; N40.0 Benign prostatic hyperplasia without lower urinary tract symptoms; I12.9 Hypertensive chronic kidney disease with stage 1 through stage 4 chronic kidney disease, or unspecified chronic kidney disease; N18.9 Chronic kidney disease, unspecified; K66.0 Peritoneal adhesions (postprocedural) (postinfection); R74.01 Elevation of levels of liver transaminase levels; E80.6 Other disorders of bilirubin metabolism; D64.9 Anemia, unspecified; H90.5 Unspecified sensorineural hearing loss; K59.00 Constipation, unspecified; K76.0 Fatty (change of) liver, not elsewhere classified; K74.60 Unspecified cirrhosis of liver; E83.39 Other disorders of phosphorus metabolism; E88.09 Other disorders of plasma-protein metabolism, not elsewhere classified; K40.90 Unilateral inguinal hernia, without obstruction or gangrene, not specified as recurrent; K57.30 Diverticulosis of large intestine without perforation or abscess without bleeding; Z87.440 Personal history of urinary (tract) infections; Z87.442 Personal history of urinary calculi; Z20.822 Contact with and (suspected) exposure to COVID-19
CPT/HCPCS: 36415; 71045-TC; 76705-TC; 78226; 80048-TC; 80053-TC; 80061-TC; 80076-TC; 81001; 82550-TC; 82570-TC; 83690-TC; 83735-TC; 83970; 84100-TC; 84155; 84155-TC; 84165; 84300-TC; 84484-TC; 85025-TC; 85610-TC; 85730-TC; 86706; 86803; 87081-TC; 87086-TC; 87340; 88304-TC; 97116-TC; 97530-TC; C9113; C9803; G0378; J0690; J0696; J1100; J2250; J2270; J2405; J2704; J2765; J3010; J3490; J7030; J7060

== ENCOUNTER → 2022-09-15 | Emergency (ER) | payer MEDICARE, BC ==
[~2022-09-15] VITALS: Ht 172.7 cm; Wt 79.4 kg
[~2022-09-15] MED LIST changes: +ASPI-1420 PO; -CIPR-262 PO; +CYCL5TAB PO; +CYCLOBENZAPRINE 10 MG TABLET ONE; +CYCLOBENZAPRINE 10 MG TABLET PO ONE; +FAMO40TA7 PO; +FINA5TAB11 PO; +GABA300C PO; +GUAI100S11 PO; +IBUP-1953 PO; +KETOROLAC TROMETHAMINE INJ 30 MG/ML VIAL IM ONE; +KETOROLAC TROMETHAMINE INJ 30 MG/ML VIAL ONE; +LEVO25TA9 PO; +LOSA25TA27 PO; +MEMA7CAP2 PO; +MIRT7.5T10 PO; +QUET25TA PO; +ROSU20TA32 PO; +SENN-261 PO; +TAMS-12 PO; +TICA90TA PO; +TRAM50TA2 PO
[2022-09-15 17:32] VITALS: BP 136/79
--- NOTE | 2022-09-15 17:32 | NUR ---
WORSENING RIGHT HIP PAIN,STARTED 2 DAYS AGO WHEN CAREGIVER WAS HELPING HIM TO GO BACK TO HIS BED, NO TRAUMA. PAIN 5/10 ON PAIN SCALE.
--- NOTE | 2022-09-15 19:14 | NUR ---
CALLED [facility] AND SET UP BLS TRANSPORT ETA [id number]
== END | disposition home or self-care (01) ==
LOC: ER 17:21
DX: M54.50 Low back pain, unspecified (principal); M25.551 Pain in right hip; Z79.899 Other long term (current) drug therapy; Z79.82 Long term (current) use of aspirin
CPT/HCPCS: 99283; 96372; 73502; J1885

== ENCOUNTER 2022-10-09 14:13 | Inpatient (IN) | payer MEDICARE, BC ==
[~2022-10-09] VITALS: Ht 167.6 cm; Wt 68.9 kg
[~2022-10-09 14:13] MED LIST changes: -CYCLOBENZAPRINE 10 MG TABLET ONE; -CYCLOBENZAPRINE 10 MG TABLET PO ONE; -GABA300C PO; -GUAI100S11 PO; -KETOROLAC TROMETHAMINE INJ 30 MG/ML VIAL IM ONE; -KETOROLAC TROMETHAMINE INJ 30 MG/ML VIAL ONE; -LEVO25TA9 PO; -SENN-261 PO; -TRAM50TA2 PO
--- NOTE | 2022-10-09 14:30 | NUR ---
DIANE CHUA "From Home been staying in bed last 3d progressively weak NOT Eating"
--- NOTE | 2022-10-09 14:44 | NUR ---
IV LINE IS ESTABLISHED, BLOOD SPECIMEN COLLECTED AND SENT TO THE LAB. THE LINE IS SALINE LOCKED.
--- NOTE | 2022-10-09 15:13 | NUR ---
urine collected and sent to the lab
--- NOTE | 2022-10-09 15:48 | NUR ---
COVID ANTIGEN SWAB DONE AND SENT TO THE LAB
[2022-10-09] MEDS ORDERED: LEVO25TA9 PO (15:53)
[2022-10-09] MEDS ORDERED: IBUP-1953 PO (15:53)
[2022-10-09] MEDS ORDERED: CYCL5TAB PO (15:53)
[2022-10-09] MEDS ORDERED: GABA300C PO (15:53)
[2022-10-09] MEDS ORDERED: SENN-261 PO (15:53)
[2022-10-09] MEDS ORDERED: TRAM50TA2 PO (15:53)
[2022-10-09 16:04] LABS: BILIRUBIN,URINE NEGATIVE (NEGATIVE); COLOR,URINE YELLOW (YELLOW); LEUKOCYTE ESTERASE ,URINE NEGATIVE (NEGATIVE); NITRITE, URINE NEGATIVE (NEGATIVE); PH,URINE 5.5 (5.0-8.0); PROTEIN,URINE NEGATIVE (NEGATIVE); UGLUCOSE NEGATIVE (NEGATIVE)
[2022-10-09] MEDS ORDERED: GUAI100S11 PO (16:11)
[2022-10-09 16:12] LABS: BASOPHILS # (AUTO) 0.1 K/uL (0.0-0.2); EOSINOPHILS % (AUTO) 7.3 % (0.0-6.0); HEMATOCRIT 41 % (39-51); HEMOGLOBIN 13.8 g/dL (13.5-17.5); LYMPHOCYTES # (AUTO) 1.9 K/uL (0.8-4.8); LYMPHOCYTES % (AUTO) 33.4 % (20.0-44.0); MEAN CORPUSCULAR HGB CONC 34 g/dl (31.0-36.0); MEAN CORPUSCULAR VOLUME 90 fL (80-96); MONOCYTES # (AUTO) 0.6 K/uL (0.1-1.30); MONOCYTES % (AUTO) 11.7 % (2.0-12.0); NEUTROPHILS # (AUTO) 2.6 K/uL (1.8-8.9); NEUTROPHILS % (AUTO) 46.6 % (43.0-81.0); PLATELET COUNT (AUTO) 209 K/uL (150-450); RED BLOOD CELL COUNT(AUTO) 4.58 MIL/uL (4.5-6.0); WHITE BLOOD COUNT (AUTO) 5.5 K/uL (4.3-11.0)
--- NOTE | 2022-10-09 16:12 | NUR ---
MOVE SHEET SUBMITTED.
[2022-10-09 16:27] LABS: CALCIUM, SERUM 9.1 mg/dL (8.5-10.1); CARBON DIOXIDE 28 mmol/L (21-32); CHLORIDE 106 mmol/L (98-107); CREATININE 1.4 mg/dL (0.6-1.3); GLUCOSE 84 mg/dL (74-106); POTASSIUM 3.9 mmol/L (3.5-5.1); SODIUM SERUM 139 mmol/L (136-145); UREA NITROGEN, BLOOD 17 mg/dL (7-18)
[2022-10-09 16:34] LABS: BACTERIA,URINE None seen /HPF (None Seen); RBC,URINE 0-2 /HPF (0-2); SQUAMOUS EPITHELIAL CELL,UR 0-2 /HPF (None Seen); WBC,URINE 0-2 /HPF (0-3)
[2022-10-09 16:35] LABS: ALANINE AMINOTRANSFERASE 37 U/L (12-78); ALBUMIN 3.5 g/dL (3.4-5.0); ALKALINE PHOSPHATASE 59 U/L (46-116); ASPARTATE AMINOTRANSFERASE 23 U/L (15-37); BILIRUBIN,DIRECT 0.2 mg/dL (0.0-0.2); BILIRUBIN,TOTAL 0.9 mg/dL (0.2-1.0); TOTAL PROTEIN, SERUM 6.6 g/dL (6.4-8.2)
--- NOTE | 2022-10-09 19:15 | NUR ---
REPORT GIVEN TO NURSE GONZALEZ FOR YARED
[2022-10-09] MEDS ORDERED: MORPHINE SULFATE INJ 2 MG/ML DISP.SYRIN IV PRN (22:00)
[2022-10-09] MEDS ORDERED: ONDANSETRON HCL/PF 4 MG/2 ML VIAL IVP PRN (22:00)
[2022-10-09] MEDS ORDERED: Z GUARD REMEDY 4 OZ OINT TP PRN (22:00)
--- NOTE | 2022-10-09 22:07 | NUR ---
REPORT GIVEN TO CHUN OGLESBY FOR YARED
--- NOTE | 2022-10-09 22:27 | NUR ---
PT TRANSPORTYED TO UNIT ON [place] WITH EMT AT BEDSIDE. PT IS IN STABLE CONDITION FOR TRANSPORT.
[2022-10-09] MEDS: ACETAMINOPHEN 325 MG TABLET PO PRN (22:58)
[2022-10-09] MEDS: ATORVASTATIN 40 MG TABLET PO SCH (22:58)
[2022-10-09] MEDS: QUETIAPINE FUMARATE 100 MG TABLET PO SCH (22:58)
[2022-10-09] MEDS: SENNOSIDES 8.6 MG TABLET PO SCH (22:58)
--- NOTE | 2022-10-10 03:59 | NUR ---
ADMITTED FROM ED DUE TO FAILURE TO THRIVE. FROM HOME, CC OF GENERALIZED WEAKNESS, NOT EATING, IN BED ALL THE TIME X3 DAYS. 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 LOWER DENTURE, GLASSES. CONTINENT OF URINE, USES URINAL, SKIN INTACT, ABLE TO SWALLOW WHOLE PILLS, THIN LIQUID. BEDREST, NO IV FLUIDS. PER DR. GARCIA, WILL NEED PLACEMENT.
[2022-10-10 04:00] VITALS: BP 125/76
[2022-10-10 07:10] LABS: BASOPHILS # (AUTO) 0.1 K/uL (0.0-0.2); EOSINOPHILS % (AUTO) 6.3 % (0.0-6.0); HEMATOCRIT 41 % (39-51); HEMOGLOBIN 13.9 g/dL (13.5-17.5); LYMPHOCYTES # (AUTO) 1.7 K/uL (0.8-4.8); LYMPHOCYTES % (AUTO) 27.4 % (20.0-44.0); MEAN CORPUSCULAR HGB CONC 34 g/dl (31.0-36.0); MEAN CORPUSCULAR VOLUME 90 fL (80-96); MONOCYTES # (AUTO) 0.6 K/uL (0.1-1.30); MONOCYTES % (AUTO) 9.4 % (2.0-12.0); NEUTROPHILS # (AUTO) 3.5 K/uL (1.8-8.9); NEUTROPHILS % (AUTO) 55.9 % (43.0-81.0); PLATELET COUNT (AUTO) 225 K/uL (150-450); RED BLOOD CELL COUNT(AUTO) 4.57 MIL/uL (4.5-6.0); WHITE BLOOD COUNT (AUTO) 6.3 K/uL (4.3-11.0)
--- NOTE | 2022-10-10 07:10 | NUR ---
MS DAY CARE HOME PROVIDER OPENING NOTE RECEIVED PATIENT SLEEPING. AWAKENS TO VERBAL STIMULI. A/O X 4. NO S/S PAIN NOTED AT THIS TIME. ON RA, BREATHING EVEN AND UNLABORED, NO DISTRESS OR SOB NOTED. IV ACCESS ON RFA #20 & LFA#18. SAFETY MEASURES WILL BE MAINTAINED THROUGHOUT THE SHIFT. WILL CONTINUE TO MONITOR.
[2022-10-10] MEDS: LEVOTHYROXINE SODIUM 25 MCG TABLET PO SCH (07:35)
[2022-10-10 07:50] LABS: ALBUMIN 3.4 g/dL (3.4-5.0); BILIRUBIN,TOTAL 1.2 mg/dL (0.2-1.0); CALCIUM, SERUM 9.2 mg/dL (8.5-10.1); CREATININE 1.2 mg/dL (0.6-1.3); MAGNESIUM 2.3 mg/dL (1.8-2.4); PHOSPHORUS 3.7 mg/dL (2.5-4.9); POTASSIUM 3.9 mmol/L (3.5-5.1); TOTAL PROTEIN, SERUM 6.5 g/dL (6.4-8.2)
[2022-10-10 08:00] VITALS: BP 118/71
[2022-10-10] MEDS: ASPIRIN EC 81 MG TABLET.DR PO SCH (08:13)
[2022-10-10] MEDS: ACETAMINOPHEN 325 MG TABLET PO PRN ×2 (08:14→17:51)
[2022-10-10] MEDS: MEMANTINE HCL 5 MG TABLET PO SCH ×2 (08:14→17:37)
[2022-10-10] MEDS: TAMSULOSIN 0.4 MG CAP.SR.24H PO SCH (08:14)
[2022-10-10] MEDS: GABAPENTIN 300 MG CAPSULE PO SCH ×2 (08:15→21:05)
[2022-10-10] MEDS: LOSARTAN POTASSIUM 25 MG TABLET PO SCH (08:15)
[2022-10-10] MEDS: FINASTERIDE (5 MG) 5 MG TABLET PO SCH (08:16)
--- NOTE | 2022-10-10 08:33 | NUR ---
CONTINUOUS MINING MACHINE COAL MINER MED NOT MISC PULLED HEPARIN FROM OMNI CELL, VIAL PULLED WAS 1000 UNITS PER ML. RETURNED 1000UNIT VIAL AND PULLED 5000UNIT VIAL. NOTIFIED PHARMACY THAT VIAL WAS NOT IN THE CORRECT SLOT.
[2022-10-10] MEDS: HEPARIN SODIUM, PORCINE 5000 UNITS/1 ML VIAL SQ SCH ×2 (08:40→21:07)
[2022-10-10] MEDS ORDERED: MORPHINE SULFATE INJ 2 MG/ML DISP.SYRIN IV PRN (12:30)
[2022-10-10 16:00] VITALS: BP 90/56
[2022-10-10] MEDS: FAMOTIDINE (20 MG) 20 MG TABLET PO SCH (17:37)
--- NOTE | 2022-10-10 18:15 | NUR ---
BOBBIN CLEANING MACHINE OPERATOR NOTE PATIENT VOMITED, HE STATED HE ATE TO MUCH DURING DINNER. CLEANED PATIENT & ASSESSED PATIENT STABLE AND WAS GOING TO TAKE A NAP.
--- NOTE | 2022-10-10 18:30 | NUR ---
MS PRIVATE BRANCH EXCHANGE SERVICE ADVISOR CLOSING NOTE PATIENT SLEEPING. AWAKENS IN VERBAL STIMULI. A/O X 4. ON RA, BREATHING EVEN AND UNLABORED, NO DISTRESS OR SOB NOTED. PATIENT HAS PAIN ON RIGHT THIGH PRN MORPHINE ADMINISTERED BY RN ON DAY SHIFT. PATIENTS PAIN DECREASED. IV ACCESS ON RFA #20 & RFA#18. SAFETY MEASURES MAINTAINED THROUGHOUT THE SHIFT. WILL ENDORSE TO LOOM BLOWER NURSE.
--- NOTE | 2022-10-10 19:57 | NUR ---
MS RN NOTE PATIENT SLEEPING EASILY WOKEN UP TO VERBAL STIMULI. A/O X 2. ON RA, PT KOBUK. BREATHING EVEN AND UNLABORED, NO DISTRESS OR SOB NOTED. IV ACCESS ON RFA #20 & RFA#18. SAFETY MEASURES MAINTAINED HOB ELEVATED FOR ASPIRATION PRECAUTIONS.
[2022-10-10] MEDS: MIRTAZAPINE 15 MG TABLET PO SCH (21:05)
[2022-10-10] MEDS: QUETIAPINE FUMARATE 100 MG TABLET PO SCH (21:05)
[2022-10-10] MEDS: SENNOSIDES 8.6 MG TABLET PO SCH (21:05)
[2022-10-10] MEDS: ATORVASTATIN 40 MG TABLET PO SCH (21:06)
[2022-10-10 21:19] VITALS: BP 101/62
[2022-10-11 05:31] VITALS: BP 140/76
--- NOTE | 2022-10-11 06:38 | NUR ---
MS RN CLOSING NOTE PATIENT SLEEPING EASILY WOKEN UP TO VERBAL STIMULI. A/O X 2. ON RA, PT KASAAN. BREATHING EVEN AND UNLABORED, NO DISTRESS OR SOB NOTED. IV ACCESS ON RFA #20 & RFA#18. SAFETY MEASURES MAINTAINED HOB ELEVATED FOR ASPIRATION PRECAUTIONS.
[2022-10-11] MEDS: LEVOTHYROXINE SODIUM 25 MCG TABLET PO SCH (07:25)
--- NOTE | 2022-10-11 07:36 | NUR ---
OPENING NOTE RECEIVED PATIENT SLEEPING. AWAKENS TO VERBAL STIMULI. A/O X 2 CONFUSED, NO S/S PAIN NOTED AT THIS TIME. ON RA, BREATHING EVEN AND UNLABORED, NO DISTRESS OR SOB NOTED. IV ACCESS ON RFA #20 & LFA#18. SAFETY MEASURES WILL BE MAINTAINED THROUGHOUT THE SHIFT. WILL CONTINUE TO MONITOR.
[2022-10-11] MEDS: TAMSULOSIN 0.4 MG CAP.SR.24H PO SCH (07:59)
[2022-10-11] MEDS: GABAPENTIN 300 MG CAPSULE PO SCH ×2 (07:59→21:09)
[2022-10-11] MEDS: ASPIRIN EC 81 MG TABLET.DR PO SCH (07:59)
[2022-10-11] MEDS: MEMANTINE HCL 5 MG TABLET PO SCH ×2 (07:59→16:36)
[2022-10-11 08:00] VITALS: BP 138/78
[2022-10-11] MEDS: LOSARTAN POTASSIUM 25 MG TABLET PO SCH (08:00)
[2022-10-11] MEDS: FINASTERIDE (5 MG) 5 MG TABLET PO SCH (08:00)
[2022-10-11] MEDS: HEPARIN SODIUM, PORCINE 5000 UNITS/1 ML VIAL SQ SCH ×2 (08:22→21:10)
--- NOTE | 2022-10-11 10:38 | NUR ---
FOLLOW UP WITH PT REGARDING EVAL. SPOKE TO BELLE
--- NOTE | 2022-10-11 11:54 | NUR ---
PT CAME AND TRY TO DO EVALUATION, PATIENT IS ASLEEP, AROUSABLE BUT HAVING HARD TIME TO OPEN UP HIS EYES.
[2022-10-11] MEDS: ENSURE ENLIVE 237 ML LIQUID (VANILLA) PO SCH ×2 (12:29→16:36)
[2022-10-11 16:00] VITALS: BP 128/61
[2022-10-11] MEDS: FAMOTIDINE (20 MG) 20 MG TABLET PO SCH (17:23)
--- NOTE | 2022-10-11 18:50 | NUR ---
PATIENT IS RESTING COMFORTABLY IN BED AFTER DINNER, ALERT X1 (NAME), CONFUSE, NO SIGNS OF IN DISTRESS, UNLABORED BREATHING ON ROOM AIR, NO COMPLAINT OF PAIN, SAFETY MEASURE APPLIED, BED IN LOW POSITION LOCKED, SIDE RAILS UPX3, CALL LIGHT WITHIN REACH.
--- NOTE | 2022-10-11 19:55 | NUR ---
RN OPENING NOTE PATIENT ASLEEP IN BED. A/OX1 ([place]). NO S/S OF DISTRESS, BREATHING WITHOUT DIFFICULTY ON ROOM AIR. RFA #20 SL INTACT AND PATENT. SAFETY MEASURES IN PLACE: BED LOCKED AND AT LOWEST POSITION, MID-FOWLERS, RAILS UP X2, CALL MONTANEZ WITHIN REACH. WILL CONTINUE TO MONITOR PATIENT.
[2022-10-11 20:00] VITALS: BP 111/66
[2022-10-11] MEDS: ATORVASTATIN 40 MG TABLET PO SCH (21:09)
[2022-10-11] MEDS: MIRTAZAPINE 15 MG TABLET PO SCH (21:09)
[2022-10-11] MEDS: QUETIAPINE FUMARATE 100 MG TABLET PO SCH (21:09)
[2022-10-11] MEDS: SENNOSIDES 8.6 MG TABLET PO SCH (21:09)
[2022-10-12 04:37] VITALS: BP 137/66
--- NOTE | 2022-10-12 06:32 | NUR ---
RN CLOSING NOTE PATIENT ASLEEP IN BED. A/OX1 (NAME), APOLLO FUENTES. NO S/S OF DISTRESS, BREATHING WITHOUT DIFFICULTY ON ROOM AIR. RFA #20 SL INTACT AND PATENT; LFA #18 SL INTACT AND PATENT. SAFETY MEASURES IN PLACE: BED LOCKED AND AT LOWEST POSITION, MID-FOWLERS, RAILS UP X2, CALL MONTANEZ WITHIN REACH. WILL ENDORSE TO NEXT SHIFT FOR YARED.
[2022-10-12] MEDS: GABAPENTIN 300 MG CAPSULE PO SCH ×2 (07:55→20:09)
[2022-10-12] MEDS: LEVOTHYROXINE SODIUM 25 MCG TABLET PO SCH (07:55)
[2022-10-12] MEDS: LOSARTAN POTASSIUM 25 MG TABLET PO SCH (07:56)
[2022-10-12] MEDS: FINASTERIDE (5 MG) 5 MG TABLET PO SCH (07:56)
[2022-10-12] MEDS: ASPIRIN EC 81 MG TABLET.DR PO SCH (07:56)
[2022-10-12] MEDS: TAMSULOSIN 0.4 MG CAP.SR.24H PO SCH (07:56)
[2022-10-12] MEDS: MEMANTINE HCL 5 MG TABLET PO SCH ×2 (07:56→16:12)
[2022-10-12] MEDS: ENSURE ENLIVE 237 ML LIQUID (VANILLA) PO SCH ×3 (07:57→16:12)
[2022-10-12 08:00] VITALS: BP 108/70
[2022-10-12] MEDS: HEPARIN SODIUM, PORCINE 5000 UNITS/1 ML VIAL SQ SCH ×2 (08:02→20:09)
--- NOTE | 2022-10-12 15:14 | NUR ---
COVID TEST DONE
[2022-10-12 16:00] VITALS: BP 110/70
[2022-10-12] MEDS: FAMOTIDINE (20 MG) 20 MG TABLET PO SCH (17:38)
[2022-10-12 20:00] VITALS: BP 113/73
--- NOTE | 2022-10-12 20:09 | NUR ---
ANTICOAGULANT H/H 13.941 PLt 225. No active bleeding. Given Heparin injection, co-signed by CHUN BANDA.
[2022-10-12] MEDS: QUETIAPINE FUMARATE 100 MG TABLET PO SCH (21:22)
[2022-10-12] MEDS: ATORVASTATIN 40 MG TABLET PO SCH (21:22)
[2022-10-12] MEDS: MIRTAZAPINE 15 MG TABLET PO SCH (21:22)
[2022-10-12] MEDS: SENNOSIDES 8.6 MG TABLET PO SCH (21:22)
[2022-10-13 04:00] VITALS: BP 157/83
--- NOTE | 2022-10-13 06:12 | NUR ---
END OF SHIFT REPORT Patient in bed, Alert Oriented 1-2. Oxygen sat high 90's in RA. Patient hard of hearing. Voided urine with Urinal clear yellow. Up to BSC, had BM during the night. Denies pain. IV left hand intact. Good appetite. Afebrile. Fall precaution maintained. Plan for dc to SNF. Will endorse to oncoming RN.
--- NOTE | 2022-10-13 07:21 | NUR ---
HUMAN FACTORS ERGONOMIST OPENING NOTES Received pt asleep in bed AOX1. No signs of pain or discomfort at this time. Pt is on RA and tolerating it well. IV access on left hand 18G patent and intact. HOB elevated to 30-45 degrees. Siderails up at all times x2. Call light within reach. Will continue to monitor.
[2022-10-13] MEDS ORDERED: HEPA50008 SQ (07:42)
[2022-10-13 08:00] VITALS: BP 148/82
[2022-10-13] MEDS: FINASTERIDE (5 MG) 5 MG TABLET PO SCH (08:29)
[2022-10-13] MEDS: ASPIRIN EC 81 MG TABLET.DR PO SCH (08:29)
[2022-10-13] MEDS: TAMSULOSIN 0.4 MG CAP.SR.24H PO SCH (08:29)
[2022-10-13 08:30] VITALS: BP 148/82
[2022-10-13] MEDS: LOSARTAN POTASSIUM 25 MG TABLET PO SCH (08:30)
[2022-10-13] MEDS: LEVOTHYROXINE SODIUM 25 MCG TABLET PO SCH (08:30)
[2022-10-13] MEDS: GABAPENTIN 300 MG CAPSULE PO SCH (08:30)
[2022-10-13] MEDS: MEMANTINE HCL 5 MG TABLET PO SCH (08:30)
[2022-10-13] MEDS: HEPARIN SODIUM, PORCINE 5000 UNITS/1 ML VIAL SQ SCH (08:32)
[2022-10-13] MEDS: ENSURE ENLIVE 237 ML LIQUID (VANILLA) PO SCH ×2 (08:39→12:18)
--- NOTE | 2022-10-13 11:01 | NUR ---
LINE CONSTRUCTION SUPERINTENDENT NOTES Pt scheduled for discharge to [facility]. Report given to CHUN Alonso and made aware pick pulling machine operator time is at 2pm. Pt RP Gonzalo (son) notified.
--- NOTE | 2022-10-13 14:23 | NUR ---
SUPERVISOR SILVERING DEPARTMENT NOTES Pt picked up bye [facility]. Gave report and paperwork to EMT. IV access removed. Transferred from bed to [facility] safely.
== END 2022-10-13 14:56 | DRG 641 ==
LOC: ER 14:16 → MEDSG1 21:30
PROVIDERS: ADMIT Internal Medicine; ATTEND Registered Nurse
DX: R62.7 Adult failure to thrive (principal); J98.11 Atelectasis; H91.90 Unspecified hearing loss, unspecified ear; E86.0 Dehydration; E03.9 Hypothyroidism, unspecified; N18.9 Chronic kidney disease, unspecified; I12.9 Hypertensive chronic kidney disease with stage 1 through stage 4 chronic kidney disease, or unspecified chronic kidney disease; Z20.822 Contact with and (suspected) exposure to COVID-19; Z79.899 Other long term (current) drug therapy; Z79.82 Long term (current) use of aspirin; F03.90 Unspecified dementia, unspecified severity, without behavioral disturbance, psychotic disturbance, mood disturbance, and anxiety; E78.5 Hyperlipidemia, unspecified; N40.0 Benign prostatic hyperplasia without lower urinary tract symptoms; M19.90 Unspecified osteoarthritis, unspecified site; R26.9 Unspecified abnormalities of gait and mobility; M51.36 Other intervertebral disc degeneration, lumbar region; K80.20 Calculus of gallbladder without cholecystitis without obstruction
CPT/HCPCS: 36415; 71045-TC; 72131-TC; 73502; 73564-TC; 80048-TC; 80053-TC; 80076-TC; 81001; 83605-TC; 83735-TC; 84100-TC; 84484-TC; 85025-TC; 85730-TC; 87040-TC; 87081-TC; 87086-TC; 97112-TC; 97116-TC; 97530-TC; A4223; C9803; G0378; J1644; J2270; J7030; J7040

== ENCOUNTER 2023-09-20 12:20 | Inpatient (IN) | payer BC, MEDICARE ==
[~2023-09-20] VITALS: Ht 170.2 cm; Wt 76.2 kg
[~2023-09-20 12:20] MED LIST changes: +GABA300C PO; +HEPA50008 SQ; +LEVO25TA9 PO; +SENN-261 PO; -TICA90TA PO; +TRAM50TA2 PO
[2023-09-20 13:30] LABS: BASOPHILS # (AUTO) 0.1 K/uL (0.0-0.2); BASOPHILS % (AUTO) 1.1 % (0.0-2.0); EOSINOPHILS # (AUTO) 0.2 K/uL (0.0-0.7); EOSINOPHILS % (AUTO) 4.4 % (0.0-6.0); HEMATOCRIT 40 % (39-51); HEMOGLOBIN 13.6 g/dL (13.5-17.5); LYMPHOCYTES # (AUTO) 1.4 K/uL (0.8-4.8); LYMPHOCYTES % (AUTO) 26.5 % (20.0-44.0); MEAN CORPUSCULAR HEMOGLOBIN 31 PG (26.0-33.0); MEAN CORPUSCULAR HGB CONC 34 g/dl (31.0-36.0); MEAN CORPUSCULAR VOLUME 89 fL (80-96); MONOCYTES # (AUTO) 0.8 K/uL (0.1-1.30); NEUTROPHILS # (AUTO) 2.9 K/uL (1.8-8.9); PLATELET COUNT (AUTO) 246 K/uL (150-450); RED BLOOD CELL COUNT(AUTO) 4.46 MIL/uL (4.5-6.0); RED CELL DISTRIBUTION WIDTH 13.6 % (11.5-15.0); WHITE BLOOD COUNT (AUTO) 5.5 K/uL (4.3-11.0)
[2023-09-20 13:36] LABS: CALCIUM, SERUM 9.8 mg/dL (8.5-10.1); CARBON DIOXIDE 26 mmol/L (21-32); CHLORIDE 105 mmol/L (98-107); CREATININE 1.6 mg/dL (0.6-1.3); GLUCOSE 90 mg/dL (74-106); POTASSIUM 4.1 mmol/L (3.5-5.1); SODIUM SERUM 139 mmol/L (136-145); UREA NITROGEN, BLOOD 27 mg/dL (7-18)
[2023-09-20] MEDS ORDERED: PIPERACI/TAZO 3.375GM/D5W 50ML PB IV ONE (14:29)
[2023-09-20] MEDS: PIPERACILLIN /TAZOBACTAM 3.375 G in IV D5W 50 ML IV ONE (14:39)
[2023-09-20] MEDS ORDERED: TRAZ-182 PO (14:54)
[2023-09-20] MEDS ORDERED: QUET200T PO (14:54)
[2023-09-20] MEDS ORDERED: FOLI0.4T6 PO (14:54)
[2023-09-20] MEDS ORDERED: FAMO20TA8 PO (14:54)
[2023-09-20] MEDS ORDERED: MIRT-90 PO (14:54)
[2023-09-20] MEDS ORDERED: IV D5/0.45 NACL 500 ML IV SCH (16:00)
[2023-09-20] MEDS ORDERED: ONDANSETRON HCL/PF 4 MG/2 ML VIAL IVP PRN (16:00)
[2023-09-20] MEDS ORDERED: MAG HYDROX/AL HYDROX/SIMETH 30 ML UDC PO PRN (16:00)
[2023-09-20] MEDS ORDERED: Z GUARD REMEDY 4 OZ OINT TP PRN (16:00)
[2023-09-20] MEDS: ENOXAPARIN SODIUM 30 MG/0.3 ML DISP.SYRIN SQ SCH (16:51)
[2023-09-20 17:00] VITALS: BP 142/97; TEMP 97.5; O2SAT 98
[2023-09-20] MEDS: TAMSULOSIN 0.4 MG CAP.SR.24H PO SCH (17:59)
[2023-09-20] MEDS: PIPERACILLIN /TAZOBACTAM 2.25 G in IV D5W 50 ML IV SCH (19:51)
[2023-09-20 20:00] VITALS: BP 143/78; TEMP 97.9; O2SAT 98
[2023-09-20] MEDS: POLYVINYL ALCOHOL 15 ML BOTTLE EACHEYE SCH (20:42)
[2023-09-20] MEDS: MIRTAZAPINE 15 MG TABLET PO SCH (22:24)
[2023-09-20] MEDS: ATORVASTATIN 40 MG TABLET PO SCH (22:24)
[2023-09-20] MEDS: TRAZODONE 50 MG TABLET PO SCH (22:24)
[2023-09-20] MEDS: QUETIAPINE FUMARATE 100 MG TABLET PO SCH (22:24)
[2023-09-21] MEDS: IV D5/0.45 NACL 1,000 ML IV PRN (03:54)
[2023-09-21 06:25] LABS: CALCIUM, SERUM 9.3 mg/dL (8.5-10.1); CARBON DIOXIDE 25 mmol/L (21-32); CHLORIDE 105 mmol/L (98-107); CREATININE 1.5 mg/dL (0.6-1.3); GLUCOSE 94 mg/dL (74-106); MAGNESIUM 2.1 mg/dL (1.8-2.4); POTASSIUM 3.3 mmol/L (3.5-5.1); SODIUM SERUM 139 mmol/L (136-145); TOTAL PROTEIN, SERUM 7.2 g/dL (6.4-8.2); UREA NITROGEN, BLOOD 19 mg/dL (7-18)
[2023-09-21 06:29] LABS: BASOPHILS % (AUTO) 0.7 % (0.0-2.0); EOSINOPHILS # (AUTO) 0.2 K/uL (0.0-0.7); EOSINOPHILS % (AUTO) 4.4 % (0.0-6.0); HEMATOCRIT 38 % (39-51); HEMOGLOBIN 13.2 g/dL (13.5-17.5); LYMPHOCYTES # (AUTO) 1.5 K/uL (0.8-4.8); LYMPHOCYTES % (AUTO) 26.7 % (20.0-44.0); MEAN CORPUSCULAR HEMOGLOBIN 31 PG (26.0-33.0); MEAN CORPUSCULAR HGB CONC 35 g/dl (31.0-36.0); MEAN CORPUSCULAR VOLUME 89 fL (80-96); MONOCYTES # (AUTO) 0.8 K/uL (0.1-1.30); MONOCYTES % (AUTO) 14.3 % (2.0-12.0); NEUTROPHILS % (AUTO) 53.9 % (43.0-81.0); PLATELET COUNT (AUTO) 251 K/uL (150-450); RED BLOOD CELL COUNT(AUTO) 4.28 MIL/uL (4.5-6.0); RED CELL DISTRIBUTION WIDTH 13.6 % (11.5-15.0); WHITE BLOOD COUNT (AUTO) 5.6 K/uL (4.3-11.0)
[2023-09-21 06:39] LABS: CHOLESTEROL 135 mg/dL (<200); HDL CHOLESTEROL 46 mg/dL (40-60); LDL 66 mg/dL (0-99); THYROID STIMULATING HORMONE 7.703 uIU/mL (0.358-3.74); TRIGLYCERIDES 93 mg/dL (30-150)
[2023-09-21 08:00] VITALS: BP 131/84; TEMP 97.7; O2SAT 97
[2023-09-21] MEDS: LEVOTHYROXINE SODIUM 25 MCG TABLET PO SCH (08:22)
[2023-09-21] MEDS: FOLIC ACID 1 MG TABLET PO SCH (08:23)
[2023-09-21] MEDS: ACETAMINOPHEN 325 MG TABLET PO PRN (08:36)
[2023-09-21] MEDS: POTASSIUM CL. PREMIX PERIPHER. 50 ML IV SCH (09:37)
[2023-09-21] MEDS ORDERED: HYDROCODONE/APAP 5/325MG TABLET PO PRN (11:00)
[2023-09-21 16:00] VITALS: BP 119/78; TEMP 97.6; O2SAT 95
[2023-09-21] MEDS: MAGNESIUM HYDROXIDE 30 ML UDC PO PRN (18:02)
[2023-09-21 19:08] LABS: CREATININE, URINE 71.8 MG/DL (30.0-125.0); URINE TOTAL PROTEIN 10.9 mg/dL (0-11.9)
[2023-09-21 20:00] VITALS: BP 143/85; TEMP 97.9; O2SAT 95
[2023-09-22 05:49] VITALS: BP 170/86; TEMP 97.7; O2SAT 95
[2023-09-22 06:34] LABS: BASOPHILS # (AUTO) 0.1 K/uL (0.0-0.2); BASOPHILS % (AUTO) 0.7 % (0.0-2.0); EOSINOPHILS # (AUTO) 0.3 K/uL (0.0-0.7); EOSINOPHILS % (AUTO) 4.2 % (0.0-6.0); HEMATOCRIT 39 % (39-51); HEMOGLOBIN 13.9 g/dL (13.5-17.5); LYMPHOCYTES # (AUTO) 1.7 K/uL (0.8-4.8); LYMPHOCYTES % (AUTO) 20.7 % (20.0-44.0); MEAN CORPUSCULAR HEMOGLOBIN 31 PG (26.0-33.0); MEAN CORPUSCULAR HGB CONC 36 g/dl (31.0-36.0); MEAN CORPUSCULAR VOLUME 88 fL (80-96); MONOCYTES # (AUTO) 1.1 K/uL (0.1-1.30); MONOCYTES % (AUTO) 13.3 % (2.0-12.0); NEUTROPHILS # (AUTO) 4.9 K/uL (1.8-8.9); NEUTROPHILS % (AUTO) 61.1 % (43.0-81.0); PLATELET COUNT (AUTO) 268 K/uL (150-450); RED BLOOD CELL COUNT(AUTO) 4.44 MIL/uL (4.5-6.0); RED CELL DISTRIBUTION WIDTH 13.5 % (11.5-15.0)
[2023-09-22 07:11] LABS: CALCIUM, SERUM 9.5 mg/dL (8.5-10.1); CARBON DIOXIDE 20 mmol/L (21-32); CHLORIDE 105 mmol/L (98-107); CREATININE 1.5 mg/dL (0.6-1.3); GLUCOSE 114 mg/dL (74-106); MAGNESIUM 2.3 mg/dL (1.8-2.4); PHOSPHORUS 1.6 mg/dL (2.5-4.9); POTASSIUM 3.2 mmol/L (3.5-5.1); SODIUM SERUM 139 mmol/L (136-145); UREA NITROGEN, BLOOD 11 mg/dL (7-18)
[2023-09-22 08:00] VITALS: BP 138/73; TEMP 98.1; O2SAT 94
[2023-09-22] MEDS: POTASSIUM CL. PREMIX PERIPHER. 50 ML IV SCH (13:17)
[2023-09-22 16:00] VITALS: BP 168/80; TEMP 97.9; O2SAT 97
[2023-09-22] MEDS: NEUTRA PHOS 1 POWD.PACKET PO ONE (16:30)
[2023-09-22 20:00] VITALS: BP 157/88; TEMP 97.5; O2SAT 97
[2023-09-22] MEDS: OLANZAPINE 10 MG VIAL IM ONE (21:23)
[2023-09-22] MEDS ORDERED: TRAZODONE 50 MG TABLET PO SCH (22:00)
[2023-09-23 07:00] VITALS: BP 151/81; TEMP 97.5; O2SAT 96
[2023-09-23 07:25] LABS: BASOPHILS % (AUTO) 0.7 % (0.0-2.0); EOSINOPHILS # (AUTO) 0.3 K/uL (0.0-0.7); EOSINOPHILS % (AUTO) 5.7 % (0.0-6.0); HEMATOCRIT 36 % (39-51); HEMOGLOBIN 12.4 g/dL (13.5-17.5); LYMPHOCYTES # (AUTO) 1.3 K/uL (0.8-4.8); LYMPHOCYTES % (AUTO) 22.5 % (20.0-44.0); MEAN CORPUSCULAR HEMOGLOBIN 31 PG (26.0-33.0); MEAN CORPUSCULAR HGB CONC 35 g/dl (31.0-36.0); MEAN CORPUSCULAR VOLUME 90 fL (80-96); MONOCYTES # (AUTO) 0.8 K/uL (0.1-1.30); MONOCYTES % (AUTO) 12.9 % (2.0-12.0); NEUTROPHILS # (AUTO) 3.4 K/uL (1.8-8.9); NEUTROPHILS % (AUTO) 58.2 % (43.0-81.0); PLATELET COUNT (AUTO) 226 K/uL (150-450); RED BLOOD CELL COUNT(AUTO) 3.97 MIL/uL (4.5-6.0); RED CELL DISTRIBUTION WIDTH 13.7 % (11.5-15.0); WHITE BLOOD COUNT (AUTO) 5.9 K/uL (4.3-11.0)
[2023-09-23 08:41] LABS: CALCIUM, SERUM 8.8 mg/dL (8.5-10.1); CARBON DIOXIDE 22 mmol/L (21-32); CHLORIDE 108 mmol/L (98-107); CREATININE 1.4 mg/dL (0.6-1.3); GLUCOSE 117 mg/dL (74-106); MAGNESIUM 2.4 mg/dL (1.8-2.4); PHOSPHORUS 3.2 mg/dL (2.5-4.9); POTASSIUM 3.6 mmol/L (3.5-5.1); SODIUM SERUM 139 mmol/L (136-145); UREA NITROGEN, BLOOD 8 mg/dL (7-18)
[2023-09-23 16:00] VITALS: BP 121/68; TEMP 97.8; O2SAT 95
[2023-09-23 20:00] VITALS: BP 119/60; TEMP 98.4; O2SAT 98
[2023-09-24 06:47] LABS: BASOPHILS % (AUTO) 0.6 % (0.0-2.0); EOSINOPHILS # (AUTO) 0.5 K/uL (0.0-0.7); EOSINOPHILS % (AUTO) 8.8 % (0.0-6.0); HEMATOCRIT 36 % (39-51); HEMOGLOBIN 12.7 g/dL (13.5-17.5); LYMPHOCYTES # (AUTO) 1.7 K/uL (0.8-4.8); LYMPHOCYTES % (AUTO) 30.1 % (20.0-44.0); MEAN CORPUSCULAR HEMOGLOBIN 31 PG (26.0-33.0); MEAN CORPUSCULAR HGB CONC 35 g/dl (31.0-36.0); MEAN CORPUSCULAR VOLUME 89 fL (80-96); MONOCYTES # (AUTO) 0.8 K/uL (0.1-1.30); MONOCYTES % (AUTO) 14.3 % (2.0-12.0); NEUTROPHILS # (AUTO) 2.6 K/uL (1.8-8.9); NEUTROPHILS % (AUTO) 46.2 % (43.0-81.0); PLATELET COUNT (AUTO) 229 K/uL (150-450); RED BLOOD CELL COUNT(AUTO) 4.07 MIL/uL (4.5-6.0); RED CELL DISTRIBUTION WIDTH 13.5 % (11.5-15.0); WHITE BLOOD COUNT (AUTO) 5.7 K/uL (4.3-11.0)
[2023-09-24 07:00] VITALS: BP 103/82; TEMP 98.2; O2SAT 96
[2023-09-24 07:00] LABS: CARBON DIOXIDE 23 mmol/L (21-32); CHLORIDE 109 mmol/L (98-107); CREATININE 1.4 mg/dL (0.6-1.3); GLUCOSE 82 mg/dL (74-106); MAGNESIUM 2.4 mg/dL (1.8-2.4); PHOSPHORUS 2.9 mg/dL (2.5-4.9); POTASSIUM 3.6 mmol/L (3.5-5.1); SODIUM SERUM 141 mmol/L (136-145); UREA NITROGEN, BLOOD 9 mg/dL (7-18)
[2023-09-24] MEDS ORDERED: METR500T PO (13:25)
[2023-09-24] MEDS ORDERED: CIPR500T5 PO (13:25)
[2023-09-24 16:00] VITALS: BP 131/74; TEMP 98.2; O2SAT 96
== END 2023-09-24 16:49 | DRG 391 ==
LOC: ER 12:50 → MED 15:54
PROVIDERS: ADMIT Nurse Practitioner Acute Care; ATTEND Student in an Organized Health Care Education/Training Program
DX: K57.32 Diverticulitis of large intestine without perforation or abscess without bleeding (principal); G93.41 Metabolic encephalopathy; N17.0 Acute kidney failure with tubular necrosis; F02.83 Dementia in other diseases classified elsewhere, unspecified severity, with mood disturbance; F02.82 Dementia in other diseases classified elsewhere, unspecified severity, with psychotic disturbance; D68.59 Other primary thrombophilia; I12.9 Hypertensive chronic kidney disease with stage 1 through stage 4 chronic kidney disease, or unspecified chronic kidney disease; Z20.822 Contact with and (suspected) exposure to COVID-19; Z79.01 Long term (current) use of anticoagulants; Z79.82 Long term (current) use of aspirin; Z79.899 Other long term (current) drug therapy; Z79.890 Hormone replacement therapy; G30.9 Alzheimer's disease, unspecified; E78.5 Hyperlipidemia, unspecified; F31.9 Bipolar disorder, unspecified; K21.9 Gastro-esophageal reflux disease without esophagitis; N40.0 Benign prostatic hyperplasia without lower urinary tract symptoms; E03.9 Hypothyroidism, unspecified; Z86.16 Personal history of COVID-19; Z74.09 Other reduced mobility; N18.30 Chronic kidney disease, stage 3 unspecified; M25.551 Pain in right hip; W19.XXXA Unspecified fall, initial encounter; Y92.9 Unspecified place or not applicable; Z90.49 Acquired absence of other specified parts of digestive tract; M89.8X9 Other specified disorders of bone, unspecified site; M48.00 Spinal stenosis, site unspecified; H91.90 Unspecified hearing loss, unspecified ear; G89.29 Other chronic pain; E87.6 Hypokalemia; D64.9 Anemia, unspecified; K42.9 Umbilical hernia without obstruction or gangrene; M47.819 Spondylosis without myelopathy or radiculopathy, site unspecified; R32 Unspecified urinary incontinence; Z78.1 Physical restraint status; R41.0 Disorientation, unspecified; K59.00 Constipation, unspecified
CPT/HCPCS: 36415; 71045-TC; 73502; 76770-TC; 80048-TC; 80061-TC; 82040-TC; 82570-TC; 83735-TC; 84100-TC; 84155-TC; 84300-TC; 84439-TC; 84443-TC; 85025-TC; 92526; 92611-TC; 97110-TC; 97530-TC; A4223; G0378; J1650; J2543; J3480; J3490; J7060